=== PATIENT | female | born 1935 | race Asian ===

== ENCOUNTER 2018-03-23 06:08 | Day surgery (SDC) | payer MEDICARE ==
[2018-03-23] MEDS ORDERED: LIDOCAINE 1% MDV 20ML VIAL SQ (06:15)
[2018-03-23] MEDS ORDERED: NS 1,000 ML IV (06:15)
[2018-03-23 06:43] LABS: POTASSIUM SERUM 5.1 MEQ/L (3.5-5.1)
[2018-03-23] MEDS ORDERED: LIDOCAINE 2% INJ 100 MG/5 ML SDV (FOR ANES.) As Ordered (07:04)
[2018-03-23] MEDS ORDERED: PROPOFOL 200 MG/20 ML VIAL As Ordered ×2 (07:04)
[2018-03-23] MEDS ORDERED: fentaNYL 100 MCG/2 ML INJECTION (J3010) As Ordered (07:09)
[2018-03-23] MEDS ORDERED: MIDAZOLAM INJ 2 MG/2 ML VIAL (J2250) As Ordered (07:09)
[2018-03-23] MEDS: BUPIVACAINE HCL 0.5% 30 ML VIAL As Ordered (07:30)
[2018-03-23] MEDS: LIDOCAINE 1% SDV INJ 30 ML VIAL As Ordered (07:30)
[2018-03-23] MEDS: ceFAZolin 2 GM/D5W 50 ML IV BAG (J0690 PER 500MG) As Ordered (07:34)
[2018-03-23] MEDS: HEPARIN SOD (PORCINE) 5000 UNITS/ML VIAL As Ordered (07:46)
[2018-03-23] MEDS ORDERED: LABETALOL HCL 100 MG/20 ML VIAL As Ordered (08:04)
== END 2018-03-23 09:35 | disposition home or self-care (01) ==
LOC: M SDC 06:08
DX: T82.7XXA Infection and inflammatory reaction due to other cardiac and vascular devices, implants and grafts, initial encounter (principal); Y71.2 Prosthetic and other implants, materials and accessory cardiovascular devices associated with adverse incidents; N18.6 End stage renal disease; I12.0 Hypertensive chronic kidney disease with stage 5 chronic kidney disease or end stage renal disease; D63.1 Anemia in chronic kidney disease; N25.81 Secondary hyperparathyroidism of renal origin; E87.5 Hyperkalemia; M46.92 Unspecified inflammatory spondylopathy, cervical region; E78.00 Pure hypercholesterolemia, unspecified; F41.9 Anxiety disorder, unspecified; Z79.899 Other long term (current) drug therapy; Z99.2 Dependence on renal dialysis; Z86.14 Personal history of Methicillin resistant Staphylococcus aureus infection; Z86.19 Personal history of other infectious and parasitic diseases
CPT/HCPCS: 35903

== ENCOUNTER 2018-04-29 11:09 | Day surgery (SDC) | payer MEDICARE ==
[2018-04-29] MEDS ORDERED: ePHEDrine SULFATE 25 MG/5 ML(5MG/ML) SYRINGE (11:10)
[2018-04-29] MEDS: NS 1,000 ML IV (11:45)
[2018-04-29] MEDS ORDERED: fentaNYL 100 MCG/2 ML INJECTION (J3010) As Ordered (12:18)
[2018-04-29] MEDS ORDERED: PROPOFOL 200 MG/20 ML VIAL As Ordered ×3 (12:18→14:35)
[2018-04-29] MEDS ORDERED: MIDAZOLAM INJ 2 MG/2 ML VIAL (J2250) As Ordered (12:18)
[2018-04-29] MEDS ORDERED: LIDOCAINE 2% INJ 100 MG/5 ML SDV (FOR ANES.) As Ordered (12:18)
[2018-04-29] MEDS: ISOVUE-300 61% 50ML VIAL (Q9967) As Ordered (12:29)
[2018-04-29] MEDS: ZOSYN 3.375 GM VIAL (J2543) As Ordered (13:01)
[2018-04-29] MEDS: BUPIVACAINE HCL 0.5% 30 ML VIAL As Ordered (13:22)
[2018-04-29] MEDS: LIDOCAINE 1% SDV INJ 30 ML VIAL As Ordered (13:22)
[2018-04-29] MEDS: HEPARIN SOD (PORCINE) 5000 UNITS/ML VIAL As Ordered (13:35)
[2018-04-29] MEDS ORDERED: HEPARIN SOD (PORCINE) 5000 UNITS/ML VIAL As Ordered ×2 (13:53)
[2018-04-29] MEDS: THROMBIN SOLN 20,000 UNITS KIT As Ordered (14:11)
[2018-04-29] MEDS ORDERED: ONDANSETRON 4MG/2ML VIAL (J2405) As Ordered (15:43)
[2018-04-29] MEDS ORDERED: PROTAMINE SULF INJ 50 MG/5 ML VIAL (J2720) As Ordered (15:43)
[2018-04-29] MEDS: ePHEDrine SULFATE 25 MG/5 ML(5MG/ML) SYRINGE IV (16:10)
[2018-04-29] MEDS ORDERED: NS 1,000 ML IV (16:30)
[2018-04-29] MEDS ORDERED: fentaNYL 100 MCG/2 ML INJECTION (J3010) IV (16:30)
[2018-04-29] MEDS ORDERED: ONDANSETRON 4MG/2ML VIAL (J2405) IV (16:30)
[2018-04-29] MEDS ORDERED: PERCOCET 5MG/325MG TAB As Ordered (16:31)
[2018-04-29] MEDS: PERCOCET 5MG/325MG TAB PO (16:32)
[2018-04-29] MEDS ORDERED: NS 300 ML IV (16:45)
[2018-04-29 16:48] LABS: HEMATOCRIT 27.4 % (36.0-47.0); MEAN CORPUSCULAR HEMOGLOBIN 33.3 pg (27.0-33.0); MEAN CORPUSCULAR HGB CONC 32.8 g/dl (32.0-36.5); MEAN CORPUSCULAR VOLUME 101.5 fl (80.0-96.0); PLATELET COUNT, AUTOMATED 173 10^3/uL (150-450); RED CELL DISTRIBUTION WIDTH 15.9 % (11.5-14.5); WHITE BLOOD COUNT 6.8 10^3/uL (4.0-10.0)
== END 2018-04-29 18:45 | disposition home or self-care (01) ==
LOC: M SDC 11:09
DX: N18.6 End stage renal disease (principal); T80.212A Local infection due to central venous catheter, initial encounter; I12.0 Hypertensive chronic kidney disease with stage 5 chronic kidney disease or end stage renal disease; D63.1 Anemia in chronic kidney disease; M12.9 Arthropathy, unspecified; F41.9 Anxiety disorder, unspecified; Z88.1 Allergy status to other antibiotic agents; Z88.8 Allergy status to other drugs, medicaments and biological substances; Z91.040 Latex allergy status; Z91.041 Radiographic dye allergy status; Z91.048 Other nonmedicinal substance allergy status; Z79.899 Other long term (current) drug therapy; Z86.14 Personal history of Methicillin resistant Staphylococcus aureus infection; Z86.19 Personal history of other infectious and parasitic diseases; Z78.0 Asymptomatic menopausal state; Z99.2 Dependence on renal dialysis; X58.XXXA Exposure to other specified factors, initial encounter; Y93.89 Activity, other specified; Y92.89 Other specified places as the place of occurrence of the external cause; Y99.8 Other external cause status
CPT/HCPCS: 34101

== ENCOUNTER → 2018-05-13 | Outpatient (CLI) | payer MEDICARE ==
[~2018-05-13] MED LIST: ISOVUE-300 61% 50ML VIAL (Q9967) As Ordered; LIDOCAINE 2% MDV 20 ML VIAL As Ordered; MIDAZOLAM INJ 2 MG/2 ML VIAL (J2250) As Ordered; fentaNYL 100 MCG/2 ML INJECTION (J3010) As Ordered
== END | disposition home or self-care (01) ==
LOC: M IRPRO 08:48
DX: T82.858A Stenosis of other vascular prosthetic devices, implants and grafts, initial encounter (principal); I12.0 Hypertensive chronic kidney disease with stage 5 chronic kidney disease or end stage renal disease; N18.6 End stage renal disease
CPT/HCPCS: 36902

== ENCOUNTER → 2018-07-06 | Outpatient (CLI) | payer MEDICARE ==
[~2018-07-06] MED LIST changes: +diphenhydrAMINE 50 MG CAP As Ordered
== END | disposition home or self-care (01) ==
LOC: M IRPRO 06:06
DX: T82.858A Stenosis of other vascular prosthetic devices, implants and grafts, initial encounter (principal); N18.6 End stage renal disease; Z99.2 Dependence on renal dialysis
CPT/HCPCS: 36902

== ENCOUNTER → 2018-08-03 | Outpatient (CLI) | payer MEDICARE ==
[~2018-08-03] MED LIST changes: -ISOVUE-300 61% 50ML VIAL (Q9967) As Ordered; -MIDAZOLAM INJ 2 MG/2 ML VIAL (J2250) As Ordered; -diphenhydrAMINE 50 MG CAP As Ordered; -fentaNYL 100 MCG/2 ML INJECTION (J3010) As Ordered
== END | disposition home or self-care (01) ==
LOC: M IRPRO 08:35
DX: Z45.2 Encounter for adjustment and management of vascular access device (principal); N18.6 End stage renal disease; Z99.2 Dependence on renal dialysis
CPT/HCPCS: 36589

== ENCOUNTER → 2018-08-05 | Outpatient (CLI) | payer MEDICARE | LOC: M RAD 13:25 | DX: R91.8 Other nonspecific abnormal finding of lung field (principal) | CPT/HCPCS: 71250 ==

== ENCOUNTER → 2018-11-02 | Outpatient (CLI) | payer MEDICARE ==
[~2018-11-02] MED LIST changes: +AMLO10TA PO; +AMLO5TAB6 PO; +ASPI1TAB PO; +ATEN50TA2 PO; +BACT400T PO; +BENA25CA4 PO; +CETI10TA PO; +CETI5SOL3 PO; +CINA30TA PO; +DAKINSHS TOP; +HYDR-3910 PO; +ISOVUE-300 61% 50ML VIAL (Q9967) As Ordered ONE; -LIDOCAINE 2% MDV 20 ML VIAL As Ordered; +LIDOCAINE 2% MDV 20 ML VIAL As Ordered ONE; +LIPI20TA PO; +MIDAZOLAM INJ 2 MG/2 ML VIAL (J2250) As Ordered ONE; +MUCI600T37 PO; +NEPHTAB PO; +PEG1POW PO; +POLY33503; +RENV2TAB PO; +SULF1TAB72 PO; +TUMS500C PO; +TYLE325T5 PO; +VITA1CAP2 PO; +fentaNYL 100 MCG/2 ML INJECTION (J3010) As Ordered ONE; +vancomycin iv IV
--- NOTE | 2018-11-02 09:23 | ROOPDOC ---
Ramírez Shelton MD Nov 02, 2018 09:23
--- NOTE | 2018-11-17 14:16 | REPIR ---
DATE OF PROCEDURE: 11/02/2018 ATTENDING SURGEON: Dr. Dandre Shelton SCANNING SUPERVISOR: Nessa Montelongo and Evon Kaiser PREOPERATIVE DIAGNOSES: End-stage renal disease. Dysfunction left brachial artery to axillary vein arteriovenous graft. POSTOPERATIVE DIAGNOSES: End-stage renal disease. Dysfunction left brachial artery to axillary vein arteriovenous graft. PROCEDURE: Left brachial artery axillary arteriovenous graft fistulogram. Left arteriovenous graft angioplasty with an 8 x 200 balloon. Left axillary vein angioplasty with an 8 x 200 balloon. Placement of two sheaths. Selective left brachial artery catheter placement with angiogram runoff. Left brachial artery angioplasty with 6 x 40 mm balloon. Left arteriovenous graft angioplasty with 6 x 40 mm balloon. INDICATION: The patient is an 82-year-old female with end-stage renal disease who dialyzes through a left brachial artery to axillary vein arteriovenous graft which has been removed due to infection and then replaced and the patient now has difficulty with pulsatility within the graft and excessive bleeding on decannulation. The patient undergo a fistulogram with possible angioplasty, stent and/or atherectomy. Risks, benefits and alternative treatment options were discussed with the patient. ANESTHESIA: Local with sedation 1 mg Versed, 50 mcg of fentanyl and 2 mL of 2% lidocaine. FLUORO TIME: 1.1 minutes. CONTRAST: 6 mL of ISOVUE 300. SEDATION TIME: Was from 8:31 a.m. to 8:53 a.m. for a total 22 minutes. COMPLICATIONS: None. DRAINS: None. SPECIMENS: None. IMPLANTS: None. PROCEDURE Patient was taken to the angiography suite, placed supine on the angiography room table, and the left upper extremity was prepped and draped in the standard surgical fashion. The arteriovenous graft was cannulated. The fistulogram showed stenosis at the graft to axillary vein anastomosis which was angioplastied with an 8 x 200 balloon with a followup fistulogram showing resolution of the stenosis. A retrograde brachial artery angiogram showed stenosis at the graft to brachial artery anastomosis. A second cannulation was performed. Catheter placed in the brachial artery and an angiogram performed confirming the stenosis after which the brachial artery and graft at the anastomosis were angioplastied with a 6 x 40 mm balloon. A completion brachial artery angiogram with runoff was performed showing resolution of the stenosis with excellent flow into the graft. There was a thrill returned to the graft at the completion intervention. The patient tolerated the procedure well. All instrument, sponge, needle counts were correct at the end of the case. There were no complications. Dr. Shelton was present for and directed the entire case. The patient was transferred to the holding area and subsequently discharged in stable condition. The left upper arm arteriovenous graft is stable for use for continued hemodialysis access.
== END | disposition home or self-care (01) ==
LOC: M IRPRO 06:25
PROVIDERS: ATTEND Surgery Vascular Surgery
DX: T82.858A Stenosis of other vascular prosthetic devices, implants and grafts, initial encounter (principal); I70.208 Unspecified atherosclerosis of native arteries of extremities, other extremity; N18.6 End stage renal disease; Z99.2 Dependence on renal dialysis
CPT/HCPCS: 36215; 36902; 75710; C1725; C1769; C1894; J2250; J3010; Q9967

== ENCOUNTER → 2019-06-30 | Outpatient (CLI) | payer MEDICARE ==
[~2019-06-30] MED LIST changes: -ASPI1TAB PO; +ASPI81TA26 PO; -CINA30TA PO; +CINA30TA4 PO; -ISOVUE-300 61% 50ML VIAL (Q9967) As Ordered ONE; -LIDOCAINE 2% MDV 20 ML VIAL As Ordered ONE; -MIDAZOLAM INJ 2 MG/2 ML VIAL (J2250) As Ordered ONE; +NEPH1TAB11 PO; -NEPHTAB PO; +VITA-183 PO; -VITA1CAP2 PO; -fentaNYL 100 MCG/2 ML INJECTION (J3010) As Ordered ONE
--- NOTE | 2019-07-22 14:25 | DEXA ---
AP SPINE L1 - L4 0.989 -1.7 0.3 LT FEMUR TOTAL 0.600 -3.2 -1.0 LT NECK 0.602 -3.1 -0.8 RT FEMUR TOTAL 0.621 -3.1 -0.8 RT NECK 0.633 -2.9 -0.6 TOTAL BODY TOTAL OTHER COMMENTS: There is low bone density of the spine. There is osteoporosis of the hips. FOLLOW-UP: Recommendation for the next bone density exam: 2 years. MAHENDRA
== END ==
LOC: M WHC 07:18
PROVIDERS: ATTEND Nurse Practitioner Family
DX: M81.0 Age-related osteoporosis without current pathological fracture (principal)

== ENCOUNTER → 2019-09-01 | Outpatient (CLI) | payer MEDICARE ==
[~2019-09-01] MED LIST changes: +ATOR1TAB21 PO; +HEPARIN 1,000 UNITS/ML 10ML VIAL (FOR RADIOLOGY& DIALYSIS ONLY) As Ordered ONE; +HYDR10TAB PO; +LIDOCAINE W/EPINEPHRINE 1% 20ML VIAL As Ordered ONE; +RENATAB6 PO; +ROCA0.5C PO; +SENS60TA PO; -SULF1TAB72 PO; +SULF400T14 PO; +VELP5CHW PO; +VENO20IN7 IV; +VITA100066 PO; +[UNRECOGNIZED DRUG - CODE] IV; +ceFAZolin 1GM INJ (J0690 PER 500MG) As Ordered ONE; +fentaNYL 100 MCG/2 ML INJECTION (J3010) As Ordered ONE
--- NOTE | 2019-09-01 19:17 | ROOPDOC ---
[facility] Report Of Operation Report of Operation DATE OF PROCEDURE: 09/01/19 PREPROCEDURE DIAGNOSES: End-stage renal disease and need of access for dialysis POSTPROCEDURE DIAGNOSES: Same PROCEDURE: 1. Ultrasound guided access right and left internal jugular veins, aborted 2. Ultrasound-guided access left femoral vein, aborted 3. Ultrasound-guided access right femoral vein 4. Placement of a 31 cm tunneled right femoral PermCath SURGEON: Radha Plasencia MD ANESTHESIA: Local anesthesia 14 mL lidocaine. Ancef 2 g IV. Fentanyl 50 g IV. Versed sedation was not used for this procedure. INDICATION FOR PROCEDURE: This is a very pleasant 83-year-old patient who has been on dialysis for 12 years and has exhausted all options for access. She has a functioning left upper extremity brachial axillary graft, but it is had skin erosions and expose graft for over a month for the patient. This is unsafe, and the graft must be removed and the ulcerated skin must be excised. In the interim, the patient requires access for dialysis. She warned me that she may not have any veins patent, and we will try both jugulars and possibly have to place a femoral if no other options are available. She has large collateral veins over her neck chest and abdomen suggesting a central occlusion. Unfortunately, we may be getting to the point where we are losing the ocasio of finding ongoing dialysis access for this very sweet patient. Risks benefits and alternatives to it PermCath placement were explained to the patient. She is agreeable to proceed. We then plan to take her on a separate procedure Thursday to remove the graft in the left upper extremity and excise the ulcerated skin. She is agreeable to this as well. INTERPRETATION: 1. We were unable to access the right jugular vein due to occlusion. We were unable to pass a wire through the access we obtained in the left jugular vein d ue to central occlusion. We were unable to access the left common femoral vein due to occlusion. We did have successful access in the right common femoral vein and could pass a wire to the central system. 2. Final imaging confirmed the tunneled catheter to be in good place through the right femoral vein with the tips freely mobile in the IVC. No kinks in the catheter were noted. REPORT OF OPERATION: The patient was brought to the angiographic suite in stable condition. Her bilateral neck were prepped and draped in a sterile fashion. A timeout was performed. We attempted to gain access to the right jugular vein, the could not do so due to occlusion on ultrasound. We were able to find a small patent jugular vein on the left, and local anesthesia was administered to the skin and subcutaneous tissues. We were able to access the jugular on the left under ultrasound, but the wire would not pass proximally due to central vein occlusion. We aborted jugular access at this point. She has extensive collateral veins over the bilateral neck and chest that are large, and likely she has had central occlusion for some time. We then prepped and draped the bilateral groins in a sterile fashion. We attempted to gain access to the left common femoral artery after anesthetizing with local anesthesia, but this was aborted as the vein was occluded on ultrasound. She has extensive collateral veins over the l eft groin and this has likely been occluded for quite some time. Ultrasound was used to guide access to the right common femoral vein after anesthetizing the area with local anesthesia. A wire was passed through this access and a sheath was placed. Through the sheath and Amplatz stiff wire was advanced into the central system under fluoroscopic guidance. The micro-sheath was removed and 2 dilators were passed over the wire using a Seldinger technique and a peel-away sheath was placed after a small incision was made at the access site. The inner cannula and wire were removed from the peel-away sheath. A small incision was made distal to this on the thigh after anesthetizing with local anesthesia. The catheter was tunneled from the thigh to the proximal groin access site and the tip of the catheter was advanced through the peel-away sheath into the central system under fluoroscopic guidance in the peel-away sheath was removed. Both ports dexter back and flushed easily and there were no kinks catheter. The cathete r was heparin locked and appropriate caps were placed. The access site was closed with deep and superficial interrupted Monocryl sutures and Dermabond at the skin. The exit site on the thigh was closed with a Prolene suture in the catheter was secured to the thigh with 2 additional Prolene sutures and sterile dressings were applied. The patient tolerated the procedure well and was taken to recovery in stable condition. It is okay to use the PermCath for dialysis. ESTIMATED BLOOD LOSS: Approximately 5 mL. COMPLICATIONS: None. PLAN: It is okay to use the PermCath for dialysis tomorrow. We will plan to bring the patient back to excise the exposed left upper extremity graft and excise the ulcerated skin as well this Thursday morning. New upper extremity acc ess may be extremely challenging, and it is unclear at this point if we will be able to provide the patient a functioning new upper extremity graft. Hopefully we will be able to provide some type of access. RADHA PLASENCIA MD Sep 01, 2019 19:17
[2019-09-01 19:30] VITALS: BP 201/91
== END ==
LOC: M IRPRO 15:47
PROVIDERS: ATTEND Surgery Vascular Surgery
DX: N18.6 End stage renal disease (principal); I82.C23 Chronic embolism and thrombosis of internal jugular vein, bilateral; I74.3 Embolism and thrombosis of arteries of the lower extremities

== ENCOUNTER 2019-09-02 09:13 | Inpatient (IN) | payer MEDICARE ==
[~2019-09-02] VITALS: Ht 152.4 cm; Wt 46.4 kg
[~2019-09-02 09:13] MED LIST changes: -ATOR1TAB21 PO; -HEPARIN 1,000 UNITS/ML 10ML VIAL (FOR RADIOLOGY& DIALYSIS ONLY) As Ordered ONE; -HYDR10TAB PO; -LIDOCAINE W/EPINEPHRINE 1% 20ML VIAL As Ordered ONE; -RENATAB6 PO; -ROCA0.5C PO; -SENS60TA PO; -VELP5CHW PO; -VENO20IN7 IV; -VITA100066 PO; -[UNRECOGNIZED DRUG - CODE] IV; -ceFAZolin 1GM INJ (J0690 PER 500MG) As Ordered ONE; -fentaNYL 100 MCG/2 ML INJECTION (J3010) As Ordered ONE
--- NOTE | 2019-09-02 10:19 | CR.PDOC ---
General Date of Consultation: Sep 02, [address] Plasencia HPI: She is an 83-year-old female with ESRD on hemodialysis every Thursday followed by Dr. Rincon. The patient was urgently referred to vascular surgery and was seen 09/01/19 to evaluate the patient's left upper extremity AV graft. The patient is noted to have multiple prior access sites in bilateral upper extremities. The patient reported that she had an infection in the graft and had 3 small openings over the graft area with yellowish drainage. She has not had any exces sive bleeding. She has continued to use the graft for dialysis access and was scheduled for dialysis 09/02/19. The patient reported otherwise she been feeling well. She denies fevers or chills. She does have a history of MRSA and her past history. She has vancomycin listed as allergy. The patient was arranged to have temporary dialysis access placed 09/01/[address] Plasencia. Plan is for the patient to receive dialysis today as an outpatient and then direct admission for IV antibiotics and AV graft removal 09/03/[address] Plasencia. The procedure, risks, and benefits have been reviewed and discussed with the patient as per Dr. Plasencia. Informed consent is obtained for removal of left arm graft and excision of ulceration. Consent was placed on the chart. Denies any fevers, chills, weakness, fatigue, Headache, Chest Pain, Shortness of breath, cough, palpitations, abdominal pain, N/V/D or changes in bowel or bladder habits. PMHx: ESRD, dialysis every Thursday Hypertension History of hepatitis B History of MRSA 2006 Dyslipidemia Allergic rhinitis PSHX: Multiple dialysis access sites bilateral upper extremities Last AV graft revision 01/18/18 left upper extremity EGD Colonoscopy SOCHX: Tobacco use: Denies ETOH: Denies Illicit Drugs: Denies FAMHX: Mother: , unknown Father: , unknown ROS: As noted in HPI, otherwise 11pt ROS of systems reviewed and unremarkable. PE: GEN: 83 yo F, appears stated age. Well-nourished, well developed. No acute distress. Alert and oriented x 3. Pleasant, interactive. HEENT: Normocephalic, atraumatic. Moist mucous membranes. CHEST: Regular rate and rhythm, +S1, +S2 LUNGS: Clear to auscultation bilaterally. No wheezes, rales, or rhonchi. ABD: Round, soft, non-tender, non-distended. EXT: The patient is noted to have small ulcerations of the skin above the AV graft left upper extremity with yellowish drainage noted. Palpable thrill. No bleeding. Small amount of surrounding erythema. No swelling of the left upper e xtremity. Multiple healed surgical sites and prior dialysis access sites noted bilateral upper extremities. NEURO: Alert and oriented x 3. Cranial nerves III-XII are intact. No focal deficits appreciated. A&P: 1. ESRD with dialysis every Thursday, patient with infected AV graft left upper extremity. Status post temporary hemodialysis access obtained 09/01/19. Unable to access the right jugular vein due to occlusion. Unable to pass a wire through the access we obtained in the left jugular vein due to central occlusion. Unable to access the left common femoral vein due to occlusion. Successful access in the right common femoral vein and could pass a wire to the central system. Patient currently with tunneled catheter to be in good place through the right femoral vein with the tips freely mobile in the IVC. The patient is receiving hemodialysis as an outpatient this morning 09/02/19. Continue with dialysis as managed by nephrology. Plan is for direct admission with hospitalist after dialysis today. Plan for continued IV antibiotics. The patient is receiving Ancef with dialysis today. The patient is noted to have vancomycin allergy. The patient is noted to have history of MRSA 2007. We will leave antibiotic regimen with hospitalist. Plan for removal of AV graft after upper extremity and excision of ulceration 09/03/[address] Plasencia. The procedure, risks, and benefits have been reviewed with the patient as per Dr. Plasencia. Informed consent was placed on the chart. Admission labs pending. Nothing by mouth after midnight tonight. Thank you for your consultation. We will continue to follow along with you. Vital Signs/I&O Admission vital signs pending. Laboratory Data Labs 24H Admission labs pending. Allergies Coded Allergies: latex (Verified Allergy, Intermediate, BLISTERS, 09/02/19) Contrast Media (Verified Allergy, Unknown, PT IS UNSURE OF REACTION, 09/02/19) iodine (Verified Allergy, Unknown, PT IS UNSURE OF REACTION, 09/02/19) vancomycin (Verified Allergy, Unknown, PT IS UNSURE OF REACTION, 09/02/19) Home Medications Scheduled Amlodipine Besylate (Amlodipine Besylate) 5 Mg Tablet, 5 MG PO DAILY, (Reported) Atorvastatin Calcium (Atorvastatin Calcium) 20 Mg Tablet, 20 MG PO QHS, (Reported) Calcitriol (Rocaltrol) 0.5 Mcg Capsule, 0.5 MCG PO 3XW, (Reported) MON/WED/FRI AT DIALYSIS Cefazolin Sodium (Cefazolin Sodium) 500 Mg Vial, 2 GM IV 3XW, (Reported) MON/WED/FRI AT DIALYSIS Cholecalciferol (Vitamin D3) (Vitamin D3) 1,000 Unit Tablet, 1,000 UNIT PO DAILY, (Reported) Cinacalcet HCl (Sensipar) 60 Mg Tablet, 60 MG PO 3XW, (Reported) MON/WED/FRI AT DIALYSIS Hydralazine HCl (Hydralazine HCl) 10 Mg Tablet, 10 MG PO BID, (Reported) Iron Sucrose Complex (Venofer) 100 Mg/5 Ml Vial, 100 MG IV 3XW, (Reported) MON/WED/FRI AT DIALYSIS Sevelamer Carbonate (Renvela) 800 Mg Tablet, 800 MG PO WM, (Reported) Sucroferric Oxyhydroxide (Velphoro) 500 Mg Tab.chew, 1,000 MG PO WM, (Reported) Vit B Comp No.3/Folic/C/Biotin (Nadege-Venkata Rx Tablet) 1 Each Tablet, 1 TAB PO DAILY, (Reported) Scheduled PRN Calcium Carbonate (Tums) 200 Mg Tab.chew, 500 MG PO for HEARTBURN/INDIGESTION, (Reported) Tracy Figueredo Sep 02, 2019 09:59
[2019-09-02 14:00] VITALS: BP 185/87
[2019-09-02] MEDS ORDERED: ROCA0.5C PO (16:17)
[2019-09-02] MEDS ORDERED: AMLO5TAB6 PO (16:17)
[2019-09-02] MEDS ORDERED: ATOR1TAB21 PO (16:17)
[2019-09-02] MEDS ORDERED: VELP5CHW PO (16:17)
[2019-09-02] MEDS ORDERED: VITA100066 PO (16:17)
[2019-09-02] MEDS ORDERED: VENO20IN7 IV (16:17)
[2019-09-02] MEDS ORDERED: SENS60TA PO (16:17)
[2019-09-02] MEDS ORDERED: RENV2TAB PO (16:17)
[2019-09-02] MEDS ORDERED: TUMS500C PO (16:17)
[2019-09-02] MEDS ORDERED: RENATAB6 PO (16:17)
[2019-09-02] MEDS ORDERED: [UNRECOGNIZED DRUG - CODE] IV (16:17)
[2019-09-02] MEDS ORDERED: HYDR10TAB PO (16:17)
[2019-09-02] MEDS ORDERED: IRON SUCROSE 100MG 5ML VIAL (J1756 PER 1MG) IV SCH (16:45)
[2019-09-02] MEDS ORDERED: CALCIUM CARBONATE 500 MG CHEW U/D PO PRN (16:45)
[2019-09-02] MEDS ORDERED: CINACALCET 30 MG TAB (SENSIPAR) PO SCH ×2 (16:45→17:39)
[2019-09-02] MEDS ORDERED: CALCITRIOL 0.25 MCG CAP (S0169) PO SCH ×2 (16:45→17:39)
--- NOTE | 2019-09-02 17:40 | HPE ---
DATE OF ADMISSION: 09/02/2019 My preceptor for this encounter is Dr. Darvin Banda. CHIEF COMPLAINT: Infected left upper extremity arteriovenous (AV) graft. HISTORY OF PRESENT ILLNESS: This is a very pleasant 83-year-old female with a past medical history significant for end-stage renal disease on hemodialysis (Thursday, Thursday, Thursday) and previous infected grafts who has noticed pus draining out of her left upper extremity AV graft for about a month. She says that it was noticed by the dialysis nurse on Thursday, and then on (yesterday), Dr. Plasencia was able to place a right common femoral vein tunneled Perma-Cath. She was able to use it at dialysis this morning, no labs were drawn. She had 1.3 liters taken off of dialysis this morning, and the plan is for her to be taken to the operating room (OR) tomorrow to excise the ulcerated skin of the left upper extremity graft. She denies any fevers or chills, lightheadedness, or diarrhea. She was mildly wheezy yesterday, but states that her wheeziness and sometimes shortness of breath will be triggered by cold. She did receive 2 grams of cefazolin this morning at dialysis. She had reported infection in the graft and had three small openings over the graft area that had drained yellow pus, but denied any type of bleeding. PAST MEDICAL HISTORY: End-stage renal disease, on hemodialysis (Thursday, Thursday, Thursday). Hypertension. Hepatitis B. Dyslipidemia. Recurrent hyperkalemia. Secondary hyperparathyroidism of renal origin. Anemia of chronic kidney disease. History of multiple graft infections, methicillin-resistant Staphylococcus aureus (MRSA) in 2006, subsequent wounds have been methicillin-sensitive Staphylococcus aureus (MSSA). PAST SURGICAL HISTORY: 1. Bilateral cataract surgery. 2. Multiple dialysis access placements with fistulograms and angioplasties. 3. Esophagogastroduodenoscopy (EGD) and colonoscopy. ALLERGIES: CALCITRIOL, IODINE, CONTRAST MEDIA, LATEX, VANCOMYCIN. HOME MEDICATIONS: - amlodipine 5 mg by mouth daily - atenolol 50 mg by mouth daily - atorvastatin 20 mg by mouth nightly - vitamin D3 1000 units by mouth daily - Sensipar 30 mg by mouth daily - Benadryl 25 mg by mouth daily as needed - hydralazine 25 mg by mouth twice a day - polyethylene glycol 255 gram powder weekly - Renvela 1600 mg by mouth with meals - Nephro-Venkata RX tablet one tablet by mouth three times a week - Tylenol 650 mg by mouth every 4 hours as needed for pain - Tums 1000 mg by mouth as needed for heartburn SOCIAL HISTORY: The patient is originally from [facility] and 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 Her in the . She is a never smoker and does not use drugs. She denies having any pets. She will have one glass of wine occasionally, typically on a month by month basis if she goes out with friends. She lives alone but has a nephew that lives upstairs from her. FAMILY HISTORY: Noncontributory. REVIEW OF SYSTEMS: Constitutional: Denies any fevers, chills, weight loss or changes to her sleeping pattern. Eyes: Denies headache, double vision, floaters or feeling like a curtain got pulled down. Ear nose, throat: Denies runny nose, epistaxis, sinus pain, tinnitus, gingival bleeding, sore throat or odynophagia. Cardiovascular: Denies any chest pain, paroxysmal nocturnal dyspnea, orthopnea, edema, palpitations or claudication. She does state that she has had multiple vascular surgeries. Respiratory: Denies any cough, sputum production, wheezes, hemoptysis or shortness of breath. Gastrointestinal: Denies abdominal pain, difficulty swallowing, indigestion, nausea, vomiting, diarrhea, constipation, obstipation, hematemesis, hematochezia, melena or tenesmus. Genitourinary: Patient says that she does make a slight amount of urine, but not very much since she is on hemodialysis. She denies any dysuria or hematuria. Musculoskeletal: Positive for some mild chronic neck pain. Denies any new stiffness, joint swelling or decreased range of motion. Integumentary: Positive for an infected left upper extremity AV graft. Denies any new pruritus, rashes, striae or lesions. Positive for a brand new right femoral vein Perma-Cath. Neurologic: Denies any changes to sight/smell/hearing/taste, seizures, headaches, paresthesias, anesthesias or limb weakness. Psychiatric: Denies any depression, anxiety, paranoia, anhedonia or episodes of dar. Endocrine: Denies mood swings, diarrhea, tremor, palpitations, constipation, dry skin polydipsia or polyphagia. Hematologic: Denies any anemia, purpura or petechiae. Lymphatic: Denies any new lumps or bumps anywhere. PHYSICAL EXAMINATION: Vital signs: Temperature 97.1, blood pressure 185/87, 95% on room air, respiratory rate 19, heart rate 78 beats per minute and regular. Weight is 44.4 kg. General: The patient is seen at bedside. She is pleasant and cooperative as well as awake, alert and oriented. She is comfortable and in no acute distress. Skin: Dark in color, somewhat jaundiced. HEENT: Sclerae are icteric. The patient has her own teeth and dentition is fair with some dental caries and caps but no missing teeth. Head is atraumatic, normocephalic. The patient makes good eye contact. Extraocular eye movements intact. Neck: Jugular venous pulsations are seen above the sternal angle, no masses. No thyromegaly. Heart: Regular rate and rhythm with a systolic murmur best appreciated at the second intercostal space left of the sternum without radiation into the carotids. No other gallops or rubs appreciated. Lungs: Clear to auscultation bilaterally. No wheezes, rhonchi or rales. Abdomen: Soft, nontender, nondistended. Normoactive bowel sounds. No masses to palpation. Extremities: Left upper extremity does have a bandage over it. There is a palpable thrill over the left AV graft, no bleeding, dressing is dry and intact. Right femoral tunnel catheter is in place, no oozing or bleeding noted. Vascular: The patient has multiple healed surgical sites in prior dialysis access sites noted in the bilateral upper extremities. Veins are easily palpable and hard to touch. Neurologic: The patient is moving all extremities freely, muscle strength is 5/5 bilaterally. Sensation is intact throughout. Cranial nerves II-XII grossly intact. No laboratory data or imaging was available for review. ASSESSMENT: This is an 83-year-old [place] female with end-stage renal disease on hemodialysis (Thursday, Thursday, Thursday) who is admitted due to a left upper extremity AV graft infection. She is postop day #1 status post right femoral Perma-Cath placement by Dr. Plasencia on 09/01/2019. PLAN: 1. Left upper extremity AV graft infection. Right common femoral vein Perma-Cath placed yesterday by Dr. Plasencia. Blood cultures have been drawn, though she did receive 2 grams of Ancef during dialysis this morning. The plan is for her to have removal of her AV graft in the left upper extremity and excision of the ulceration tomorrow 09/03/2019. She does have a history of MRSA in 2007, however her admission in 2018 showed MSSA. Blood cultures are pending, we will adjust antibiotics accordingly. 2. End-stage renal disease - on hemodialysis Thursday, Thursday, Thursday. We have consulted Dr. Rincon, appreciate his help. She did have 1.3 liters taken off this morning, and her dialysis days are Thursday, Thursday, Thursday as mentioned above. Renal diet ordered. Continue home calcitriol 0.5 mcg by mouth three times per week, vitamin D3 1000 units by mouth daily, Renvela 800 mg by mouth with meals. 3. History of hyperkalemia. No labs were drawn at this morning dialysis session. Admission labs are pending. Will add Kayexalate as needed. 4. Hypertension. Continue her home amlodipine, hydralazine. Volume control per nephrology with dialysis. 5. Hyperlipidemia. Continue home atorvastatin 20 mg by mouth nightly. 6. Anemia of chronic kidney disease. Continue with home Velphoro 1000 mg by mouth with meals and Venofer 100 mg per 5 mL infusion three times a week with dialysis. 7. Secondary hyperparathyroidism. Continue home Sensipar 60 mg by mouth three times a week. 8. Heartburn: Continue TUMS as needed. 9. Deep vein thrombosis (DVT) prophylaxis. Heparin. CODE STATUS: The patient is a DO NOT RESUSCITATE/DO NOT INTUBATE (DNR/DNI), Medical Orders for Life-Sustaining Treatment (MOLST) form is in the chart. DISPOSITION: Inpatient as we expect greater than two midnights. MTDD
[2019-09-02] MEDS: (RENVELA) SEVELAMER **CARBONate** 800 MG TAB PO SCH (17:55)
[2019-09-02 19:32] LABS: HEMOGLOBIN 9.8 g/dl (12.0-15.5); MEAN CORPUSCULAR HEMOGLOBIN 32.5 pg (27.0-33.0); MEAN CORPUSCULAR HGB CONC 31.6 g/dl (32.0-36.5); MEAN CORPUSCULAR VOLUME 102.6 fl (80.0-96.0); PLATELET COUNT, AUTOMATED 215 10^3/uL (150-450); RED BLOOD COUNT 3.02 10^6/uL (4.00-5.40); WHITE BLOOD COUNT 4.6 10^3/uL (4.0-10.0)
[2019-09-02 19:50] LABS: ALBUMIN 3.1 GM/DL (3.2-5.2); CALCIUM LEVEL 8.9 MG/DL (8.8-10.2); CREATININE FOR GFR 3.9 MG/DL (0.55-1.30); GLOMERULAR FILTRATION RATE 11.7 (>32); PHOSPHORUS LEVEL 4.2 MG/DL (2.5-4.9); POTASSIUM SERUM 3.6 MEQ/L (3.5-5.1)
[2019-09-02] MEDS: SUCROFERRIC OXYHYDROXIDE 500MG CHEW TAB (VELPHORO) PO SCH (20:14)
[2019-09-02] MEDS: ATORVASTATIN 20 MG TAB PO SCH (20:15)
[2019-09-02] MEDS: **hydrALAZINE** 10 MG TAB PO SCH (20:15)
[2019-09-02] MEDS ORDERED: HEPARIN SOD (PORCINE) 5000 UNITS/ML VIAL SQ SCH (21:00)
[2019-09-02 21:28] VITALS: BP 180/90
[2019-09-02 22:46] VITALS: BP 150/70
[2019-09-03] VITALS (9 sets, daily range): BP systolic 102–163; BP diastolic 47–67
[2019-09-03 05:55] LABS: HEMATOCRIT 31.4 % (36.0-47.0); HEMOGLOBIN 9.8 g/dl (12.0-15.5); MEAN CORPUSCULAR HEMOGLOBIN 31.8 pg (27.0-33.0); MEAN CORPUSCULAR HGB CONC 31.2 g/dl (32.0-36.5); MEAN CORPUSCULAR VOLUME 101.9 fl (80.0-96.0); PLATELET COUNT, AUTOMATED 209 10^3/uL (150-450); RED BLOOD COUNT 3.08 10^6/uL (4.00-5.40); WHITE BLOOD COUNT 4.4 10^3/uL (4.0-10.0)
[2019-09-03 06:17] LABS: CALCIUM LEVEL 8.7 MG/DL (8.8-10.2); CREATININE FOR GFR 5.07 MG/DL (0.55-1.30); GLOMERULAR FILTRATION RATE 8.6 (>32); PHOSPHORUS LEVEL 4.7 MG/DL (2.5-4.9)
[2019-09-03] MEDS: (RENVELA) SEVELAMER **CARBONate** 800 MG TAB PO SCH ×4 (08:00→18:23)
[2019-09-03] MEDS: SUCROFERRIC OXYHYDROXIDE 500MG CHEW TAB (VELPHORO) PO SCH ×4 (08:00→18:22)
--- NOTE | 2019-09-03 08:13 | IPNPDOC ---
Date Seen The patient was seen on 09/03/19. Progress Note Ms Robbins is a very pleasant 83-year-old patient with end-stage renal disease who has had 12 years of difficult dialysis access and now presents with serious problem with her left upper extremity AV graft. We saw her in clinic on due to reports of ulceration over her PTFE brachial axillary graft. According to the patient, she has had ulcers over the graft with exposed graft and yellow discharge for over a month. She says the dialysis nurses have been accessing more proximally on the arm towards the shoulder to avoid the area. Unfortunately, this is an extremely serious issue for her for 2 reasons. One, because the graft is by definition infected once it is exposed and this puts her at high risk for bacteremia and infection of all the failed grafts she has in her bilateral upper and lower extremities. She has had AV grafts in her right leg, right forearm, right upper arm, left forearm left upper arm and we are extremely worried that we will not be able to place a new AV access for her safely once we excised the infected graft. 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 The only place we could place a PermCath for temporary dialysis access while we deal with her left upper extremity axis issue is her right common femoral vein. This is not a good option for long-term catheter, has femoral PermCath tend to get infected easily and clot easily. I'm very worried about her long-term prognosis if we cannot provide new additional access. Ideally, we would excise the infected graft in the ulcerated skin and allow the arm to heal before placing a new access. However, in this patient, that is not necessarily the best option because we may not be able to suitably place a new access due to limitations in venous outflow. Right now, I suspect her left upper extremity AV graft is functioning mostly on outflow through collateral circulation. The patient has extensive large visible collaterals on her bilateral neck and clavicles, and her chest, abdomen, and left groin. At this point, I am concerned that we may have to ligate the PTFE graft proximally and distally, excise the graft in the area of the ulceration, and anastomosis a new interposition graft tunneled through a noninfected area. We would do this with the understanding that this new graft has extremely high risk of becoming infected. The patient may need a course of IV antibiotics with dialysis over the next few months to try to stave off infection. Blood cultures preoperative pending, and if these are negative, that will increase the chances we may be able to get her through this without bacteremia and infection. Nevertheless, this is extremely high risk. If I feel t here is no safe way to tunnel a new graft, or if I cannot find a way to place the graft in a position due to limitations of venous outflow, we may be at an impass and need to discuss possible transfer to [place] for a more heroic option for dialysis access vs discussing end of life care. I have had this discussion with the patient, and she understands we may be very limited in what we can provide for access. We will see how things go in the OR and discuss her care with our nephrology colleagues postoperatively. VS, I&O, 24H, Fishbone Vital Signs/I&O Vital Signs Date Time Temp Pulse Resp B/P (MAP) Pulse Ox O2 Delivery O2 Flow Rate FiO2 09/03/19 06:00 98.2 71 16 162/67 (98) 95 Room Air I&O- Last 24 Hours up to 6 AM 09/03/19 06:00 Intake Total 660 ml Output Total 0 ml Balance 660 ml Laboratory Data 24H LABS Laboratory Tests 2 09/02/19 19:18: Nucleated Red Blood Cells % (auto) 0.0, Anion Gap 6L, Glomerular Filtration Rate 11.7L, Calcium Level 8.9, Phosphorus Level 4.2, Albumin 3.1L 09/03/19 05:30: Nucleated Red Blood Cells % (auto) 0.0, Anion Gap 13, Glomerular Filtration Rate 8.6L, Calcium Level 8.7L, Phosphorus Level 4.7, Albumin 3.0L CBC/BMP Laboratory Tests 09/02/19 19:18 09/03/19 05:30 Microbiology Microbiology 09/02/19 Blood Culture, Received Pending 09/02/19 Blood Culture, Received Pending RADHA CARMONA MD Sep 03, 2019 08:13
[2019-09-03] MEDS: amLODIPine 5 MG TAB PO SCH (08:43)
[2019-09-03] MEDS: **hydrALAZINE** 10 MG TAB PO SCH ×2 (08:43→20:21)
[2019-09-03] MEDS: VITAMIN D 1,000 INTERNATIONAL UNITS TABLET PO SCH (08:43)
[2019-09-03] MEDS ORDERED: PNEUMOCOCCAL VACCINE 0.5ML SYRINGE(90732) PNEUMOVAX 23 IM ONE (09:00)
[2019-09-03] MEDS ORDERED: HEPARIN SOD (PORCINE) 5000 UNITS/ML VIAL As Ordered ONE ×3 (10:05→11:56)
[2019-09-03] MEDS ORDERED: LIDOCAINE 1% SDV INJ 30 ML VIAL As Ordered ONE (10:05)
[2019-09-03] MEDS ORDERED: VANCOMYCIN 1000 MG/20 ML VIAL (J3370) As Ordered ONE (10:09)
[2019-09-03] MEDS ORDERED: fentaNYL 100 MCG/2 ML INJECTION (J3010) As Ordered ONE ×2 (10:16→13:43)
[2019-09-03] MEDS ORDERED: MIDAZOLAM INJ 2 MG/2 ML VIAL (J2250) As Ordered ONE (10:16)
[2019-09-03] MEDS ORDERED: LIDOCAINE 2% INJ 100 MG/5 ML SDV (FOR ANES.) As Ordered ONE (10:16)
[2019-09-03] MEDS ORDERED: SUGAMMADEX SODIUM 500 MG/5 ML VIAL (BRIDION) As Ordered ONE (10:16)
[2019-09-03] MEDS ORDERED: ROCURONIUM BROMIDE 50 MG/5 ML VIAL As Ordered ONE (10:16)
[2019-09-03] MEDS ORDERED: METOCLOPRAMIDE INJ 10MG/2ML VIAL (J2765) As Ordered ONE (10:16)
[2019-09-03] MEDS ORDERED: ONDANSETRON 4MG/2ML VIAL (J2405) As Ordered ONE (10:16)
[2019-09-03] MEDS ORDERED: PROPOFOL 200 MG/20 ML VIAL As Ordered ONE ×2 (10:16→13:24)
[2019-09-03] MEDS ORDERED: CLINDAMYCIN 600 MG/50 ML PREMIX BAG As Ordered ONE (10:48)
[2019-09-03] MEDS ORDERED: ceFAZolin 1GM INJ (J0690 PER 500MG) As Ordered ONE (10:53)
--- NOTE | 2019-09-03 10:53 | IPNPDOC ---
Text Note Date of Service The patient was seen on 09/03/19. NOTE SUBJECTIVE: Patient is seen at bedside. She will being to surgery this morning for excision of her LUE AV graft. There were no acute events overnight, her potassium is within normal limits. She denies chest pain, shortness of breath, nausea, vomiting, diarrhea, constipation, or leg swelling. OBJECTIVE: Vital signs: See below General: The patient is seen at bedside. She is pleasant and cooperative as well as awake, alert and oriented. She is comfortable and in no acute distress. Skin: Dark in color, somewhat jaundiced. HEENT: Sclerae are icteric. The patient has her own teeth and dentition is fair with some dental caries and caps but no missing teeth. Head is atraumatic, normocephalic. The patient makes good eye contact. Extraocular eye movements intact. Neck: Jugular venous pulsations are seen above the sternal angle, no masses. No thyromegaly. Heart: Regular rate and rhythm with a systolic murmur best appreciated at the second intercostal space left of the sternum without radiation into the carotids. No other gallops or rubs appreciated. Lungs: Clear to auscultation bilaterally. No wheezes, rhonchi or rales. Abdomen: Soft, nontender, nondistended. Normoactive bowel sounds. No masses to palpation. Extremities: Left upper extremity does have a bandage over it. There is a palpable thrill over the left AV graft, no bleeding, dressing is dry and intact. Right femoral tunnel catheter is in place, no oozing or overt bleeding noted. Vascular: The patient has multiple healed surgical sites in prior dialysis access sites noted in the bilateral upper extremities. Veins are easily palpable and hard to touch. Neurologic: The patient is moving all extremities freely, muscle strength is 5/5 bilaterally. Sensation is intact throughout. Cranial nerves II-XII grossly intact. No laboratory data or imaging was available for review. ASSESSMENT: This is an 83-year-old [place] female with end-stage renal disease on hemodialysis (Thursday, Thursday, Thursday) who is admitted due to a left upper extremity AV graft infection. She is postop day #2 status post right femoral Perma-Cath placement by Dr. Plasencia on 09/01/2019. PLAN: 1. Left upper extremity AV graft infection. POD# 2 s/p right common femoral vein Perma-Cath placed 09/01/[address] Plasencia. Blood cultures have been drawn, though she did receive 2 grams of Ancef during dialysis Thursday morning (09/02/19). The plan is for her to have removal of her AV graft in the left upper extremity and excision of the ulceration today (09/03/2019). She does have a history of MRSA in 2007, however her admission in 2018 showed MSSA. Blood cultures are pending, we will adjust antibiotics accordingly. 2. End-stage renal disease - on hemodialysis Thursday, Thursday, Thursday. We have consulted Dr. Rincon, appreciate his help. She did have 1.3 liters taken off Thursday morning (09/02/19), and her dialysis days are Thursday, Thursday, Thursday as mentioned above. Renal diet ordered. Continue home calcitriol 0.5 mcg by mouth three times per week, vitamin D3 1000 units by mouth daily, Renvela 800 mg by mouth with meals. 3. History of hyperkalemia. No labs were drawn at this morning dialysis session. Admission labs are pending. Will add Kayexalate as needed. 4. Hypertension. Continue her home amlodipine, hydralazine. Volume control per nephrology with dialysis. 5. Hyperlipidemia. Continue home atorvastatin 20 mg by mouth nightly. 6. Anemia of chronic kidney disease. Continue with home Velphoro 1000 mg by mouth with meals and Venofer 100 mg per 5 mL infusion three times a week with dialysis. 7. Secondary hyperparathyroidism. Continue home Sensipar 60 mg by mouth three times a week. 8. Heartburn: Continue TUMS as needed. 9. Deep vein thrombosis (DVT) prophylaxis. Heparin. DISPOSITION: Possible discharge home tomorrow pending how her surgery goes today VS,Fishbone, I+O VS, Fishbone, I+O Laboratory Tests 09/02/19 19:18 09/03/19 05:30 Vital Signs Date Time Temp Pulse Resp B/P (MAP) Pulse Ox O2 Delivery O2 Flow Rate FiO2 09/03/19 08:43 162/67 09/03/19 06:00 98.2 71 16 95 Room Air I&O- Last 24 Hours up to 6 AM 09/03/19 06:00 Intake Total 660 ml Output Total 0 ml Balance 660 ml GME ATTESTATION GME ATTESTATION My faculty preceptor for this patient encounter was physically present during the encounter and was fully available. All aspects of the patient interview, examination, medical decision making process, and medical care plan development were reviewed and approved by the faculty preceptor. The faculty preceptor is aware and concurs with the plan as stated in the body of this note and will attest to such by his/her cosignature. SKIP HUFFMAN D.O. Sep 03, 2019 10:53
[2019-09-03] MEDS ORDERED: SEVOFLURANE INHAL SOLN 250 ML BTL As Ordered ONE (12:17)
[2019-09-03] MEDS ORDERED: ACETAMINOPHEN TAB 650MG DOSE (2X325MG) PO PRN (14:45)
[2019-09-03] MEDS ORDERED: ONDANSETRON 4MG/2ML VIAL (J2405) IV PRN (14:45)
[2019-09-03] MEDS ORDERED: fentaNYL 100 MCG/2 ML INJECTION (J3010) IV PRN (14:45)
[2019-09-03] MEDS ORDERED: NS 1,000 ML IV SCH (14:45)
[2019-09-03] MEDS ORDERED: ACETAMINOPHEN TAB 650MG DOSE (2X325MG) As Ordered ONE (14:57)
[2019-09-03] MEDS ORDERED: PERCOCET 5MG/325MG TAB PO PRN (15:15)
--- NOTE | 2019-09-03 15:18 | ROOPDOC ---
[facility] Report Of Operation Report of Operation DATE OF PROCEDURE: 09/03/19 PREPROCEDURE DIAGNOSES: End-stage renal disease with ulceration over her left upper extremity AV graft with exposed graft POSTPROCEDURE DIAGNOSES: Same. PROCEDURE: 1. Excision of infected skin and graft; 14 cm skin and subcutaneous tissue excised and 20 cm of graft excised. 2. Placement of a tunneled left brachial axillary Artegraft, interposition between the brachial artery and the remaining PTFE graft at the shoulder SURGEON: Radha Plasencia MD ANESTHESIA: Local anesthesia 14 mL lidocaine. General anesthesia. INDICATION FOR PROCEDURE: This is a very pleasant 83-year-old patient with a complicated history of dialysis access. She has been on dialysis for 12 years, and during that time she has had multiple AV grafts in her bilateral upper extremities and lower extremities. She has occluded right and left jugular veins and left femoral vein. She has extensive collateral veins around the neck, ch est, abdomen, and left groin. She has a one-month history of ulceration over her left upper extremity brachial axillary graft with exposed graft. The dialysis nurses were still accessing the graft during that time, but accessing more proximally towards the shoulder. The patient denies any fevers or chills, and says she has just been cleaning the ulceration daily and putting a Band-Aid on it. She underwent placement of a right femoral vein PermCath on , dialysis Thursday, and then was admitted yesterday afternoon so we could bring her in this morning for a graft excision and possible placement of a graft. It is suboptimal to remove an infected graft in place another graft at the same surgery. The chance of the new graft getting infected is extremely high. Especially in such a thin patient with no real distance between the clean and the dirty areas. Unfortunately, the patient does not have options for dialysis access. Her veins and arteries are severely compromised by years of previous graft placements and removals. She has limited venous return to the heart. Despite having central vein occlusion, she has enough collateral circulation on the left to allow adequate dialysis per Dr. Rincon. When I discussed her case with him, he said so far her graft had been adequate for dialysis. Our tentative plan today will be to excise the skin and the distal aspect of the graft from the AV anastomosis to the mid arm. We will then attempt to tunnel a graft from the brachial artery to the old graft at the shoulder. If there is gross purulence or other concerns, we will not proceed with new graft placement. Risks benefits and alternatives to this procedure were explained to the patient and she is agreeable to proceed. Informed consent was obtained. REPORT OF OPERATION: The patient was brought to the operating room in stable condition and placed supine on the OR table. General anesthesia and antibiotics were administered without complication. Her left upper extremity to the axilla was prepped and draped in a sterile fashion. Ioban was placed. A timeout was performed. An elliptical incision was made around the ulcerated skin and this was excised and sent for culture. Culture swabs were also taken around the graft. A clamp was placed on the graft towards the AV anastomosis and towards the shoulder, and the graft was transected. The exposed area of graft, infected by definition due to exposure, was covered with gauze and then covered with Ioban. We left the known dirty portion of the case, utilized a gloves and instruments, and did our best to prevent cross contamination although this is nearly impossible due to the proximity to the infected area. The incision was extended over the brachial artery pulse. The incorporated portion of the graft that was not grossly infected was then carefully dissected from the soft tissues back to the brachial artery circumferentially. The brachial artery was skeletonized proximally and distally within the incision. This took some time due to dense scar tissues from multiple previous surgeries. Vesseloops replace proximally and distally on the brachial artery. Next, a small incision was made just distal to the shoulder over the graft. This was carried down to the subcutaneous tissues with Bovie cautery and we then carefully skeletonized the graft proximally and distally within the incision. The distal aspect was transected after a clamp was placed proximally near the shoulder. Following this, the distal end was dissected down the arm as far as possible and then oversewn with a 5-0 Prolene suture. Next, the proximal and was slightly beveled for anastomosis with a graft. We then tunneled a 7 mm Artegraft from the brachial artery to the shoulder incision. The brachial and the graft was beveled and narrowed to a 5 mm opening with 5-0 Prolene suture. We then secured the Vesseloops on the brachial artery and excised the graft at the old anastomosis from the artery, and then anastomosed the new Artegraft to the artery and an end-to-side fashion with running 5-0 Prolene suture. Before the final sutures were placed, a clamp was placed on the graft and we flushed the inflow and outflow artery. The anastomosis was irrigated with heparinized saline and the final sutures were placed. Flow was restored and the hand was warm and well- perfused. We then beveled at the distal end of the graft for a tension-free and and anastomosis with the existing graft at the shoulder. A 5-0 Prolene suture was used to anastomosis the 2 ends of the graft, and before the final sutures are placed we flushed the venous outflow as well as flushed the arterial inflow through the graft. Heparinized saline was used to irrigate the anastomosis in the final sutures are placed. Restored full first to the vein and through the arterial side. Good hemostasis was noted. Next, we dopplered over the graft and found excellent flow. It was a little pulsatile, but not significantly so. We expect some pulsatility due to limited venous outflow and central system. The hand had an excellent triphasic signal at the palmar arch. The fingers were warm and pink. We irrigated both incisions with copious amounts of saline. The deep and superficial tissues were approximated with running 3-0 Vicryl suture and the skin was closed with running subcuticular Monocryl suture. At the antecubital incision, we only closed 5 cm initially over the clean section of new graft and the brachial artery. The rest of the incision was left open so we could excise the infected graft as completely as possible within the incision. We turned our attention to this area after closing the other 2 incisions and dressing them with Mastisol and Steri-Strips. They infected graft was excised from the brachial artery to the mid arm with the help of Bovie cautery and sharp dissection. The graft was sent for culture. The tissues were copiously irrigated with saline. No purulence was noted during the infected graft excision. The tissue appeared grossly healthy and viable. We approximated the deep tissues with a running 3-0 Vicryl suture in the superficial tissues with a running 3-0 Vicryl suture. The skin was closed with running subcutaneous jugular Monocryl suture. Steri-Strips were placed over the incision. Both incisions were then dressed with dry gauze and Tegaderms. Following this the patient was extubated and taken to recovery in stable condition. SPECIMENS: Anaerobic and aerobic cultures were sent including a piece of the excised skin and the excise graft. ESTIMATED BLOOD LOSS: Approximately 50 mL. COMPLICATIONS: None. PLAN: Our plan is for the patient to continue dialyzing with her right femoral v ein PermCath for now. If the graft in the left upper extremity is stable, and her incisions are healing well, we may allow access of the AV graft in a week or two. For now, we will continue careful monitoring of her arm and incisions for signs of infection and poor wound healing. We will continue IV antibiotics, follow the cultures and adjust accordingly, and we will consult infectious disease to help us with consideration of long-term antibiotics to prevent infection of the new graft. The patient should have a high-protein diet to help with wound healing. Supplement shakes would be helpful. Although she will likely be hemodynamically stable for discharge tomorrow, I would like her to stay in the hospital through Thursday for an infectious disease consult at that time and for monitoring over the weekend of her incisions and left arm graft. RADHA PLASENCIA MD Sep 03, 2019 15:18
[2019-09-03] MEDS ORDERED: [UNRECOGNIZED DRUG - REMARK] XX SCH (16:00)
--- NOTE | 2019-09-03 16:16 | IPNPDOC ---
Date Seen The patient was seen on 09/03/19. Progress Note POSTOPERATIVE CHECK: Patient seen and examined. She is sitting up in bed eating her dinner. She says she is doing fine status post left upper extremity excision of infected skin graft, and new AV graft placement. Her incisions have minimal sanguinous shadowing, no hematomas are noted on her arm, and there is good flow noted on the graft with Doppler, and a triphasic signal at the palmar arch in her hand which is warm and well-perfused. Unfortunately, we are not sure if new graft placement will be successful in light of the infection of the excised graft, but we are hopeful that once her cultures come back and we can target her antibiotics that we may have a shot to prevent infection of the new graft, possibly with an extended course of antibiotics. We will discuss with our infectious disease colleagues on Thursday. For now, we will continue to monitor her closely. VS, I&O, 24H, Fishbone Vital Signs/I&O Vital Signs Date Time Temp Pulse Resp B/P (MAP) Pulse Ox O2 Delivery O2 Flow Rate FiO2 09/03/19 15:55 99.4 75 17 135/61 (85) 100 Room Air 09/03/19 15:00 2 I&O- Last 24 Hours up to 6 AM 09/03/19 06:00 Intake Total 660 ml Output Total 0 ml Balance 660 ml Laboratory Data 24H LABS Laboratory Tests 2 09/02/19 19:18: Nucleated Red Blood Cells % (auto) 0.0, Anion Gap 6L, Glomerular Filtration Rate 11.7L, Calcium Level 8.9, Phosphorus Level 4.2, Albumin 3.1L 09/03/19 05:30: Nucleated Red Blood Cells % (auto) 0.0, Anion Gap 13, Glomerular Filtration Rate 8.6L, Calcium Level 8.7L, Phosphorus Level 4.7, Albumin 3.0L CBC/BMP Laboratory Tests 09/02/19 19:18 09/03/19 05:30 Microbiology Microbiology 09/03/19 Gram Stain - Final, Resulted 09/03/19 Surgical Biopsy Culture, Resulted Pending 09/03/19 Anaerobic Culture, Resulted Pending 09/03/19 Gram Stain - Final, Resulted 09/03/19 Abscess Culture, Resulted Pending 09/03/19 Anaerobic Culture, Resulted Pending 09/02/19 Blood Culture, Received Pending 09/02/19 Blood Culture, Received Pending RADHA CARMONA MD Sep 03, 2019 16:16
[2019-09-03] MEDS: ATORVASTATIN 20 MG TAB PO SCH (20:21)
[2019-09-03] MEDS: ACETAMINOPHEN TAB 650MG DOSE (2X325MG) PO PRN (20:22)
[2019-09-03] MEDS ORDERED: HEPARIN SOD (PORCINE) 5000 UNITS/ML VIAL SQ SCH (21:00)
[2019-09-04] VITALS (7 sets, daily range): BP systolic 137–165; BP diastolic 64–68
[2019-09-04] MEDS ORDERED: DESMOPRESSIN ACETATE IV ONE (00:30)
[2019-09-04] MEDS ORDERED: NS IV ONE (00:30)
[2019-09-04 01:17] LABS: INR 1.25; PROTHROMBIN TIME 15.4 SECONDS (11.8-14.0)
[2019-09-04 06:17] LABS: HEMATOCRIT 27.3 % (36.0-47.0); HEMOGLOBIN 8.8 g/dl (12.0-15.5); MEAN CORPUSCULAR HGB CONC 32.2 g/dl (32.0-36.5); MEAN CORPUSCULAR VOLUME 102.2 fl (80.0-96.0); PLATELET COUNT, AUTOMATED 196 10^3/uL (150-450); RED BLOOD COUNT 2.67 10^6/uL (4.00-5.40); WHITE BLOOD COUNT 5.2 10^3/uL (4.0-10.0)
[2019-09-04 06:28] LABS: INR 1.19; PROTHROMBIN TIME 14.8 SECONDS (11.8-14.0)
[2019-09-04 06:45] LABS: CREATININE FOR GFR 7.08 MG/DL (0.55-1.30); GLOMERULAR FILTRATION RATE 5.9 (>32)
[2019-09-04 06:46] LABS: ALBUMIN 2.8 GM/DL (3.2-5.2); CALCIUM LEVEL 8.9 MG/DL (8.8-10.2); PHOSPHORUS LEVEL 6.3 MG/DL (2.5-4.9); POTASSIUM SERUM 4.4 MEQ/L (3.5-5.1)
[2019-09-04] MEDS: SUCROFERRIC OXYHYDROXIDE 500MG CHEW TAB (VELPHORO) PO SCH ×3 (08:52→17:16)
[2019-09-04] MEDS: (RENVELA) SEVELAMER **CARBONate** 800 MG TAB PO SCH ×3 (08:53→17:16)
[2019-09-04] MEDS: VITAMIN D 1,000 INTERNATIONAL UNITS TABLET PO SCH (08:53)
[2019-09-04] MEDS: **hydrALAZINE** 10 MG TAB PO SCH ×2 (08:54→21:08)
[2019-09-04] MEDS: amLODIPine 5 MG TAB PO SCH (08:54)
--- NOTE | 2019-09-04 10:12 | CR ---
DATE OF CONSULTATION: 09/03/[address] GERONIMO STREETER REASON FOR CONSULTATION: To assist in the management of end-stage renal disease. HISTORY OF PRESENT ILLNESS: Mrs. Robbins is an 83-year-old very pleasant lady with end-stage renal disease, history of hepatitis B, history of anemia, history of secondary hyperparathyroidism, history of chronic hyperkalemia and dyslipidemia. She has had multiple problems with her AV grafts and fistulas in the past with infections and now currently has a left upper arm AV graft which was being used for dialysis. She was noticed to have an area of infection and ulceration with grafts visible through the skin hole. It was felt that her graft was infected and she was seen by Dr. Plasencia. The patient is now admitted for excision of her infected graft. She underwent a femoral vein PermaCath placement after failing for PermaCath in both right and left internal jugular veins. She was last dialyzed yesterday and is scheduled for surgery of her left arm AV graft today. Nephrology consultation was requested and the patient is seen this morning. PAST MEDICAL HISTORY (Significant for): 1. End-stage renal disease, on maintenance hemodialysis three times a week. 2. Hypertension. 3. Hepatitis C. 4. Dyslipidemia. 5. Recurrent hyperkalemia. 6. Secondary hyperparathyroidism. 7. Anemia of chronic renal failure. 8. 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 PAST SURGICAL HISTORY (Significant for): Bilateral cataract surgery, multiple dialysis access surgeries, esophagogastroduodenoscopy (EGD) and colonoscopy. ALLERGIES: She has multiple drug allergies including VANCOMYCIN, CALCITRIOL, IODINE, CONTRAST MEDIA and LATEX. MEDICATIONS: Her home medications include amlodipine 5 mg daily, atenolol 50 mg daily, atorvastatin 20 mg daily, vitamin D 1000 units daily, Sensipar 30 mg daily, hydralazine 25 mg twice a day, Benadryl 25 mg as needed for itch, Renvela 1600 mg three times a day with meals, Nephro-Venkata 1 tablet daily, Tylenol 650 mg as needed for pain, and Tums 1000 mg as needed for heartburn. 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 She has no history of smoking or drug use. FAMILY HISTORY: Noncontributory. REVIEW OF SYSTEMS: The patient denies any fever or chills. She is very compliant with the dialysis treatment. Eyes, ears, nose and throat are unremarkable. Cardiovascular system is significant for hypertension. She denies any chest pain, dyspnea or leg edema. Respiratory system negative for cough or hemoptysis. GI system is negative for nausea, vomiting or diarrhea. system is negative for dysuria or hematuria. Hematological system is significant for chronic anemia. She denies any bleeding issues. GI system is also significant for history of hepatitis B. Musculoskeletal system negative for leg edema. Psychosocial system negative for depression and anxiety. Neurological system is negative for seizures or stroke. Endocrine system is negative for diabetes or thyroid problems. She has secondary hyperparathyroidism. PHYSICAL EXAMINATION: The patient is awake and alert sitting in the chair at the time of my visit. Temperature 98.4 degrees Fahrenheit, heart rate 84 per minute and respiratory rate 16 per minute. Blood pressure 135/60 mmHg and oxygen saturation 100% on room air. Head is atraumatic. Neck is supple and without jugular venous distention (JVD) or thyroid enlargement. Heart sounds are regular with a systolic murmur grade 1/6. Lungs: Clear to auscultation. Abdomen: Soft and nontender. Bowel sounds are normal. Extremities: Without any cyanosis or clubbing. Left upper arm AV graft is patent and the infected area is covered with a dressing. I did not open the dressing. Neurologically, she is awake, alert and oriented times three. LABORATORY DATA: Her WBC count is 4.4, hemoglobin 9.8 and hematocrit 31.4. Platelets 209. Sodium 138, potassium 4.0, chloride 97, CO2 28, BUN 28 and creatinine 5.07. Glucose 95 and calcium 8.7. Phosphorus is 4.7 and albumin 3.0. PROBLEMS: 1. End-stage renal disease. The patient is regularly dialyzed on Thursday, Thursday and Thursday schedule. She was dialyzed yesterday and we will plan to dialyze her again on Thursday. At present, her volume status is well-compensated and electrolytes are within normal range. There is no emergent need for dialysis today. 2. Hypertension. Blood pressure seems to be reasonably well-controlled and her chronic antihypertensive medications are appropriate, which should be continued. 3. Anemia. She has chronic anemia due to end-stage renal disease which is stable at baseline and we will monitor closely. No urgent intervention is indicated. 4. Infected graft left arm. She does have exposed graft which is technically infected, but she does not have any fever and blood cultures have been negative. She has allergy to vancomycin, so we gave her Ancef yesterday. She had a PermaCath placed as her graft is not likely to be usable after surgery. She is going to have resection of her infected graft today. Thank you for involving me in the care of Mrs. Robbins. I will follow her along with you.
--- NOTE | 2019-09-04 10:35 | IPNPDOC ---
Text Note Date of Service The patient was seen on 09/04/19. NOTE SUBJECTIVE: Patient seen and examined at bedside. Overnight events significant for bleeding at right femoral cath site. Patient has no new medical complaints. Objective: Vital signs: See below General: NAD, lying comfortably in bed, in good spirits HEENT: NC/AT, EOMI, PERRL Lungs: CTA B/L Heart: +S1S2, systolic murmur Abd: soft, NT, +BS Extremities: Left upper extremity does have a bandage over it. There is a palpable thrill over the left AV graft, no bleeding, dressing is dry and intact. Right femoral tunnel catheter is in place, bandages in place Vascular: The patient has multiple healed surgical sites in prior dialysis access sites noted in the bilateral upper extremities. Veins are easily palpable and hard to touch. Neurologic: no gross focal deficits A/P: 83 yo female with ESRD/HD-MWF, admitted for LUE AV graft infection. She is postop day #3 s/p right femoral Perma-Cath placement by Dr. Plasencia on 09/01/2019. # LUE AV graft infection - POD#3 right common femoral vein Perma-Cath placed 09/01/[address] Plasencia - BCx negative to date - she did receive 2 grams of Ancef during dialysis Thursday morning (09/02/19) - s/p removal of LUE AV graft - 09/03/19 - vanc allergy - on meropenem #ESRD/HD-MWF - follow as per nephrology - assistance appreciated - She did have 1.3 liters taken off Thursday morning (09/02/19) - continue home calcitriol 0.5 mcg by mouth three times per week, vitamin D3 1000 units by mouth daily, Renvela 800 mg by mouth with meals. #bleeding - continue to monitor H/H - no need for transfusion at this time - transition to mechanical prophylaxis #Hypertension. Continue her home amlodipine, hydralazine. #Hyperlipidemia. Continue home atorvastatin 20 mg by mouth nightly. #Anemia of chronic kidney disease. Continue with home Velphoro 1000 mg by mouth with meals and Venofer 100 mg per 5 mL infusion three times a week with dialysis. #Secondary hyperparathyroidism. Continue home Sensipar 60 mg by mouth three times a week. # Deep vein thrombosis (DVT) prophylaxis. mechanical DISPOSITION: pending clinical improvement VS,Darlyn, I+O VS, Darlyn, I+O Laboratory Tests 09/04/19 05:49 Vital Signs Date Time Temp Pulse Resp B/P (MAP) Pulse Ox O2 Delivery O2 Flow Rate FiO2 09/04/19 08:54 165/68 09/04/19 08:54 79 09/04/19 06:00 98.7 17 95 Room Air 09/03/19 15:00 2 I&O- Last 24 Hours up to 6 AM 09/04/19 06:00 Intake Total 868.6 ml Output Total 50 ml Balance 818.6 ml GERONIMO STREETER MD Sep 04, 2019 10:35
[2019-09-04] MEDS ORDERED: MEROPENEM INJ 1 GM in IV 1 EA IV ONE (11:00)
--- NOTE | 2019-09-04 11:52 | IPNPDOC ---
Date Seen The patient was seen on 09/04/19. Progress Note Patient seen and examined. Doing well today. Overnight, she had some oozing from her right thumb cath on multiple occasions. I think this is due to the patient being very sensitive to heparin. She did receive heparin for DVT prophylaxis perioperatively, and an additional 5000 units of heparin intraoperatively for graft replacement. We noted that she was very oozy intraoperatively, but we acce pt that in order to maintain perfusion through the brachial artery and to the hand and through the new graft. She had minimal oozing on her arm postop, but then rolled over in the bed and noted she had significant bleeding on her mattress pad. The nurses held pressure and I asked them to hold her heparin and check a PTT in the morning. Her PTT was 40, which is a bit elevated considering all she has had his DVT prophylaxis, so I think she is just sensitive to the anticoagulation. For now, we will continue to hold the heparin and minimize her activity. She does not need to be on bedrest, but I would only get her up to the bathroom and then elevate her leg to diminish venous pressures. If she doesn't have any other bleeding episodes today or overnight, tomorrow he will resume activity as tolerated. The patient would like to go home today, but I told her since her nephew is out of town and she doesn't have any other family here, and she had the bleeding overnight, and we have such a tenuous situation with the new graft in her left arm, and since ID has not yet seen her, I would prefer if she stays at least 1 more day possibly longer depending on the situation. She is agreeable to this. I did speak with Dr. Denson this morning and she recommended starting meropenem for gram-negative nathalie coverage. She will be happy to consult tomorrow and add further recommendations as appropriate. Unfortunately, we are so very limited and options for access in this patient, and any functional axis we have we need to salvage if possible. It is unclear to me if a new access so close to the area of previous infected tissue is going to be successful, but with possibly a longer course of IV antibiotics we may be able to maintain the new graft without infection. On exam today, she does have a bit of swelling in the left upper extremity but we did a very extensive dissection. Her incisions are all clean dry and intact with minimal oozing on the dressings. She has an excellent flow on Doppler over the new Artegraft. Her hand is warm and well- perfused. Her right thigh catheter today is clean dry and intact with no new oozing on the dressing. The dressing was sterilely replaced with 4 x 4's and a bit of tension on the Tegaderm to create a bit of pressure dressing to help maintain hemostasis. We will ask the dialysis nurse to replace the dressing tomorrow with just the chlorhexidine dressing during her regular dialysis time. The patient was extensively counseled and is agreeable to this plan. All questions were answered. VS, I&O, 24H, Fishbone Vital Signs/I&O Vital Signs Date Time Temp Pulse Resp B/P (MAP) Pulse Ox O2 Delivery O2 Flow Rate FiO2 09/04/19 10:00 98.1 82 24 150/68 (95) 94 Room Air 09/03/19 15:00 2 I&O- Last 24 Hours up to 6 AM 09/04/19 06:00 Intake Total 868.6 ml Output Total 50 ml Balance 818.6 ml Laboratory Data 24H LABS Laboratory Tests 2 09/04/19 00:48: Prothrombin Time 15.4H, Prothromb Time International Ratio 1.25 09/04/19 05:49: Prothrombin Time 14.8H, Prothromb Time International Ratio 1.19, Nucleated Red Blood Cells % (auto) 0.0, Activated Partial Thromboplast Time 40.0H, Anion Gap 11, Glomerular Filtration Rate 5.9L, Calcium Level 8.9, Phosphorus Level 6.3#H, Albumin 2.8L CBC/BMP Laboratory Tests 09/04/19 05:49 Microbiology Microbiology 09/03/19 Gram Stain - Final, Resulted 09/03/19 Surgical Biopsy Culture, Resulted Pending 09/03/19 Anaerobic Culture, Resulted Pending 09/03/19 Gram Stain - Final, Resulted 09/03/19 Abscess Culture, Resulted Pending 09/03/19 Anaerobic Culture, Resulted Pending 09/02/19 Blood Culture - Preliminary, Resulted No growth after 24 hours . All specim... 09/02/19 Blood Culture - Preliminary, Resulted No growth after 24 hours . All specim... RADHA CARMONA MD Sep 04, 2019 11:52
[2019-09-04] MEDS: [UNRECOGNIZED DRUG - REMARK] XX SCH (13:46)
[2019-09-04] MEDS: ACETAMINOPHEN TAB 650MG DOSE (2X325MG) PO PRN (14:07)
[2019-09-04] MEDS: ATORVASTATIN 20 MG TAB PO SCH (21:08)
[2019-09-05 05:50] VITALS: BP 134/62
[2019-09-05 05:56] LABS: HEMATOCRIT 26.1 % (36.0-47.0); HEMOGLOBIN 8.5 g/dl (12.0-15.5); MEAN CORPUSCULAR HEMOGLOBIN 32.9 pg (27.0-33.0); MEAN CORPUSCULAR HGB CONC 32.6 g/dl (32.0-36.5); MEAN CORPUSCULAR VOLUME 101.2 fl (80.0-96.0); PLATELET COUNT, AUTOMATED 188 10^3/uL (150-450); RED BLOOD COUNT 2.58 10^6/uL (4.00-5.40); WHITE BLOOD COUNT 5.7 10^3/uL (4.0-10.0)
[2019-09-05 06:27] LABS: ALBUMIN 2.6 GM/DL (3.2-5.2); CREATININE FOR GFR 9.14 MG/DL (0.55-1.30); GLOMERULAR FILTRATION RATE 4.4 (>32); PHOSPHORUS LEVEL 5.2 MG/DL (2.5-4.9); POTASSIUM SERUM 5.2 MEQ/L (3.5-5.1)
[2019-09-05] MEDS: **hydrALAZINE** 10 MG TAB PO SCH ×2 (06:39→20:43)
[2019-09-05] MEDS: amLODIPine 5 MG TAB PO SCH (06:39)
[2019-09-05] MEDS: VITAMIN D 1,000 INTERNATIONAL UNITS TABLET PO SCH (06:40)
[2019-09-05] MEDS: (RENVELA) SEVELAMER **CARBONate** 800 MG TAB PO SCH ×3 (08:28→17:33)
[2019-09-05] MEDS: SUCROFERRIC OXYHYDROXIDE 500MG CHEW TAB (VELPHORO) PO SCH ×3 (08:28→17:33)
[2019-09-05] MEDS ORDERED: CALCITRIOL 0.25 MCG CAP (S0169) PO SCH (09:00)
[2019-09-05] MEDS ORDERED: MEROPENEM INJ 1 GM in IV 1 EA IV SCH (09:00)
[2019-09-05] MEDS ORDERED: CINACALCET 30 MG TAB (SENSIPAR) PO SCH (09:00)
[2019-09-05] MEDS ORDERED: HEPARIN 1,000 UNITS/ML 10ML VIAL (FOR RADIOLOGY& DIALYSIS ONLY) IV ONE (11:00)
[2019-09-05] MEDS ORDERED: HEPARIN 1,000 UNITS/ML 10ML VIAL (FOR RADIOLOGY& DIALYSIS ONLY) XX ONE (11:00)
[2019-09-05 15:04] LABS: C REACTIVE PROTEIN QUANTITATIV 5.43 MG/DL (0.00-0.30)
[2019-09-05] MEDS: [UNRECOGNIZED DRUG - REMARK] XX SCH (16:00)
--- NOTE | 2019-09-05 16:03 | IPNPDOC ---
Text Note Date of Service The patient was seen on 09/05/19. NOTE Vascular Surgery Dr Plasencia. Patient seen and examined. Doing well today. Sitting on the side of the bed. Having breakfast. Status post left upper extremity excision of infected skin graft, and new AV graft placement. Denies pain in the left upper extremity. States swelling is slightly improved. The patient is afebrile. No leukocytosis. Her left upper extremity dressings are intact. Her hand is warm and well- perfused. Her right thigh catheter with no new oozing on the dressing. The patient is going to dialysis today. Plan is for dialysis today. Continue to closely monitor left upper extremity AV graft placement. Continue to closely monitor for bleeding or drainage. Plan is to continue with IV antibiotics with dialysis. Infectious disease assistance appreciated. VS,Darlyn, I+O VS, Darlyn, I+O Laboratory Tests 09/05/19 05:39 Vital Signs Date Time Temp Pulse Resp B/P (MAP) Pulse Ox O2 Delivery O2 Flow Rate FiO2 09/05/19 08:57 18 Room Air 09/05/19 06:39 134/62 09/05/19 06:39 80 09/05/19 05:50 98.3 92 09/03/19 15:00 2 I&O- Last 24 Hours up to 6 AM 09/05/19 06:00 Intake Total 1724 ml Output Total 225 ml Balance 1499 ml Tracy Figueredo Sep 05, 2019 16:03
[2019-09-05] MEDS ORDERED: ceFAZolin SOD 2 GM in IV 1 EA IV SCH (16:45)
[2019-09-05] MEDS ORDERED: ceFAZolin SOD 2 GM in D5W MINI-BAG PLUS 50 ML IV SCH (17:00)
--- NOTE | 2019-09-05 18:02 | IPNPDOC ---
Date Seen The patient was seen on 09/05/19. Progress Note SUBJECTIVE: Patient is a 83-year-old female with ESRD on hemodialysis who is admitted for left upper extremity AV graft infection. Patient states she is feeling well this morning. She denies any pain in her left upper extremity. She denies chest pain, shortness of breath, nausea, vomiting, diarrhea, constipation, or leg swelling. OBJECTIVE PHYSICAL EXAMINATION: VITAL SIGNS: Please see below. GENERAL: Alert, comfortable lying in bed, in no acute distress HEENT: Normocephalic, atraumatic, moist mucous membranes, sclera anicteric NECK: Supple, trachea midline, no lymphadenopathy, no JVD CARDIOVASCULAR: Regular rate and rhythm, normal S1 and S2. Systolic ejection murmur 2/6 over the upper sternal border RESPIRATORY: Clear to auscultation bilaterally with equal air entry bilaterally. No wheezing, rhonchi, or rales. ABDOMEN: Soft, nontender, nondistended, bowel sounds present, no masses or hepatosplenomegaly appreciated EXTREMITIES: No cyanosis or edema. Pulses 2+/4 in bilateral upper and lower extremities bandage present over the left upper extremity, dressing is dry and intact without drainage or bleeding. Right femoral catheter is in place. NEUROLOGIC: Alert and oriented 3 to person, place and time. Cranial nerves 2-12 grossly intact. No focal deficits appreciated PSYCHIATRIC: Mood and affect appropriate LABORATORY DATA, IMAGING STUDIES, MICROBIOLOGY: Please see below. ASSESSMENT AND PLAN: 83-year-old female with ESRD on hemodialysis who is admitted for left upper extremity AV graft infection, POD #4 right femoral permacath placement and POD #2 left AV graft removal and ulceration excision PROBLEMS: # LUE AV graft infection - POD#4 right common femoral vein Perma-Cath placed 09/01/[address] Plasencia - POD#2 removal of LUE AV graft - 09/03/[address] Plasencia - Blood cultures x2 resulted as positive for Proteus Mirabilis - vanc allergy - started on meropenem, switched to cefazolin IV based on sensitivities, day #2 of 7 of antibiotics #ESRD/HD-MWF - Consulted nephrology, appreciate their assistance and recommendations - continue home calcitriol 0.5 mcg by mouth three times per week, vitamin D3 1000 units by mouth daily, Renvela 800 mg by mouth with meals. #bleeding - continue to monitor H/H daily - no need for transfusion at this time - continue to mechanical DVT prophylaxis #Hypertension. - Continue her home amlodipine, hydralazine. #Hyperlipidemia. - Continue home atorvastatin 20 mg by mouth nightly. #Anemia of chronic kidney disease. - Continue with home Velphoro 1000 mg by mouth with meals and Venofer 100 mg per 5 mL infusion three times a week with dialysis. #Secondary hyperparathyroidism. - Continue home Sensipar 60 mg by mouth three times a week. DVT prophylaxis: JOANA stockings and sequentials DISPOSITION: likely d/c tomorrow on IV antibiotics with dialysis to complete course VS, I&O, 24H, Fishbone Vital Signs/I&O Vital Signs Date Time Temp Pulse Resp B/P (MAP) Pulse Ox O2 Delivery O2 Flow Rate FiO2 09/05/19 08:57 18 Room Air 09/05/19 06:39 134/62 09/05/19 06:39 80 09/05/19 05:50 98.3 92 09/03/19 15:00 2 I&O- Last 24 Hours up to 6 AM 09/05/19 06:00 Intake Total 1724 ml Output Total 225 ml Balance 1499 ml Laboratory Data 24H LABS Laboratory Tests 2 09/05/19 05:39: Nucleated Red Blood Cells % (auto) 0.0, Anion Gap 13, Glomerular Filtration Rate 4.4L, Calcium Level 9.0, Phosphorus Level 5.2H, C-Reactive Protein, Quantitative 5.43H, Albumin 2.6L CBC/BMP Laboratory Tests 09/05/19 05:39 Microbiology Microbiology 09/03/19 Gram Stain - Final, Resulted 09/03/19 Surgical Biopsy Culture - Final, Resulted Proteus Mirabilis 09/03/19 Anaerobic Culture, Resulted Pending 09/03/19 Gram Stain - Final, Resulted 09/03/19 Abscess Culture - Final, Resulted Proteus Mirabilis 09/03/19 Anaerobic Culture, Resulted Pending 09/02/19 Blood Culture - Preliminary, Resulted No Growth after 48 hours. All Specime... 09/02/19 Blood Culture - Preliminary, Resulted No Growth after 48 hours. All Specime... GME ATTESTATION GME ATTESTATION My faculty preceptor for this patient encounter was physically present during the encounter and was fully available. All aspects of the patient interview, examination, medical decision making process, and medical care plan development were reviewed and approved by the faculty preceptor. The faculty preceptor is aw are and concurs with the plan as stated in the body of this note and will attest to such by his/her cosignature. ATTENDING NOTE Patient was seen and examined by me this morning with the residents. Agree with the above assessment and plan MARIO ALBERTO CHRISTENSEN D.O. Sep 05, 2019 18:02 GEOFFREY ROSS MD Sep 07, 2019 08:48
--- NOTE | 2019-09-05 19:10 | IPN ---
DATE: 09/04/2019 Mrs. Robbins is seen this morning on her bedside. She reports that last night she felt wet in the bed and was noticed to have bleeding from her right femoral Perma-Cath. She had left arm arteriovenous (AV) graft surgery yesterday for infected graft and had part of her graft resected and revised. She denies any pain in her arm. PHYSICAL EXAMINATION: Temperature 98 degrees Fahrenheit, heart rate 82 per minute, and respiratory rate 24 per minute. Blood pressure 150/68 mmHg and oxygen saturation 94% on room air. Head is atraumatic. Neck is supple and without jugular venous distention (JVD) or thyroid enlargement. Heart sounds are regular and lungs clear to auscultation. Abdomen: Soft and nontender. Bowel sounds normal. Extremities: Without any cyanosis or clubbing. Left arm AV graft is patent and surgical dressing site is clean. Her right femoral vein Perma-Cath is also clean with intact dressing and no active bleeding. Neurologically, she is awake, alert and oriented times three. Today's labs show WBC count 5.2, hemoglobin 8.8 and hematocrit 27.3. Platelets 196. A repeat hemoglobin at noon is now 9.2. Sodium 133, potassium 4.4, CO2 26, BUN 46 and creatinine 7.08. Calcium 8.9 and phosphorus 6.3. PROBLEMS: 1. End-stage renal disease. The patient was dialyzed on Thursday last time and is due for dialysis tomorrow. If she is still in the hospital, then we can dialyze her here. 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 At this point,there is no emergent indication for dialysis today. 2. Anemia with acute blood loss. She had some bleeding from her Perma-Cath site last night and dropped her hemoglobin slightly. A repeat hemoglobin is a little better now and should be repeated again tomorrow morning. There is no emergent indication for a transfusion. 3. Hypertension. Blood pressure is reasonably well controlled on current antihypertensive meds and no changes are being made today. 4. Infected left arm AV graft. She had an exposed area of graft, which was felt to be infected and has been resected. She has a Perma-Cath in right femoral vein, which is currently being used for dialysis. Once her wound starts healing and vascular surgery gives clearance, then we can start using her left arm graft.
[2019-09-05] MEDS: ATORVASTATIN 20 MG TAB PO SCH (20:43)
[2019-09-05 22:00] VITALS: BP 134/63
[2019-09-06 05:27] VITALS: BP 160/74
[2019-09-06 07:23] LABS: HEMATOCRIT 26.4 % (36.0-47.0); HEMOGLOBIN 8.5 g/dl (12.0-15.5); MEAN CORPUSCULAR HEMOGLOBIN 33.2 pg (27.0-33.0); MEAN CORPUSCULAR HGB CONC 32.2 g/dl (32.0-36.5); MEAN CORPUSCULAR VOLUME 103.1 fl (80.0-96.0); PLATELET COUNT, AUTOMATED 187 10^3/uL (150-450); RED BLOOD COUNT 2.56 10^6/uL (4.00-5.40); WHITE BLOOD COUNT 5.8 10^3/uL (4.0-10.0)
[2019-09-06 07:58] LABS: ALBUMIN 2.6 GM/DL (3.2-5.2); CALCIUM LEVEL 8.8 MG/DL (8.8-10.2); CREATININE FOR GFR 5.53 MG/DL (0.55-1.30); GLOMERULAR FILTRATION RATE 7.8 (>32); PHOSPHORUS LEVEL 3.3 MG/DL (2.5-4.9); POTASSIUM SERUM 4.9 MEQ/L (3.5-5.1)
[2019-09-06] MEDS: VITAMIN D 1,000 INTERNATIONAL UNITS TABLET PO SCH (08:57)
[2019-09-06] MEDS: SUCROFERRIC OXYHYDROXIDE 500MG CHEW TAB (VELPHORO) PO SCH (08:57)
[2019-09-06] MEDS: (RENVELA) SEVELAMER **CARBONate** 800 MG TAB PO SCH (08:57)
[2019-09-06 08:58] VITALS: BP 160/74
[2019-09-06] MEDS: **hydrALAZINE** 10 MG TAB PO SCH (08:58)
[2019-09-06] MEDS: amLODIPine 5 MG TAB PO SCH (08:58)
--- NOTE | 2019-09-06 09:32 | IPN ---
DATE OF VISIT: 09/05/2019 Mrs. Robbins is seen this morning on her bedside. She is feeling well and denies any complaints. She is able to lift her left arm up now and denies any pain. There is no more bleeding from her PermaCath site. She denies any dyspnea, chest pain, fever, chills, nausea or vomiting. On physical exam, temperature 98.3 degrees Fahrenheit, heart rate 80 per minute and respiratory rate 18 per minute. Blood pressure 134/62 mmHg and oxygen saturation 92%. Head is atraumatic. Neck is supple and without jugular venous distention (JVD) or thyroid enlargement. Heart sounds regular and lungs sound clear to auscultation. Abdomen soft and nontender, and bowel sounds normal. Extremities without any cyanosis or clubbing. Left upper arm atrioventricular (AV) graft is patent and surgical incision is clean. She has a PermaCath in right groin area on right thigh, which is without any active bleeding. Neurologically, she is at her baseline mentation. Today's labs show WBC count 5.7, hemoglobin 8.5 and hematocrit 26.1. Sodium 133, potassium 5.2, CO2 24, BUN 66 and creatinine 9.14. Calcium 9.0 and phosphorus 5.2. PROBLEMS: 1. End-stage renal disease. Patient is regularly dialyzed on Thursday, Thursday and Thursday schedule. She will be dialyzed this afternoon and we will use her right thigh PermaCath. 2. Infected AV graft. Patient had resection of infected graft and a revision done. Her graft is patent and we likely will be using it within the next couple of weeks. At present, she has a PermaCath for temporary use, which is currently going to be used today. 3. Acute blood loss anemia. She had some bleeding from the catheter site yesterday, which has now stopped. She is going to be receiving iron during dialysis and there is no emergent need for a transfusion. 4. Hyperkalemia. She has mild hyperkalemia and will be dialyzed with 2.0 mEq bath, which will correct her hyperkalemia. 5. Infected AV graft. The patient has been afebrile and graft has been resected and she remains on meropenem 1 gram after each dialysis.
--- NOTE | 2019-09-06 09:42 | IPNPDOC ---
Date Seen The patient was seen on 09/06/19. Progress Note Patient seen and examined. She is sitting up at the edge of the bed eating breakfast. She said she did well with her right thigh femoral vein catheter at dialysis yesterday. She says her left upper extremity has minimal pain. On exam, there is increased swelling today of the upper arm, but no fluctuance noted. There is a little bruising around the proximal incision at the shoulder, but no hematoma noted. There is also some bruising in the area of extensive dissection were the graft was excised and replaced, but no fluctuance or signs of hematoma. Her forearm is also a bit swollen. She has a mild erythema of the forearm but I think this is just from surgery and dissection. No induration or obvious cellulitis is present. There is good flow through the graft. I removed and replaced the Steri-Strips on the distal incision at the antecubital because they were loosely attached due to serous drainage. I cleaned the area thoroughly, skin prepped, and replaced Steri-Strips. I covered this with gauze and paper tape. The patient can replace the gauze and paper tape daily at home. The small skin tear on her forearm is stable and we can leave the op site intact until it heals. The shoulder can be left open with just Steri-Strips. She should elevate her left upper extremity above the level of the heart at least 30 minutes 3 times a day, but as much as possible would be helpful. She will continue IV antibiotics with dialysis per Dr. Stiles instructions. We would like to see her back in clinic next week to make sure she is doing okay, if possible. Her arm will need significantly less swelling before we can access the graft. A minimum of one week to heal is required, but we will see how she does since she had such an extensive dissection and now has so much swelling. VS, I&O, 24H, Fishbone Vital Signs/I&O Vital Signs Date Time Temp Pulse Resp B/P (MAP) Pulse Ox O2 Delivery O2 Flow Rate FiO2 09/06/19 08:58 160/74 09/06/19 08:58 81 09/06/19 05:27 98.4 20 95 Room Air 09/03/19 15:00 2 I&O- Last 24 Hours up to 6 AM 09/06/19 06:00 Intake Total 700 ml Output Total 1500 ml Balance -800 ml Laboratory Data 24H LABS Laboratory Tests 2 09/06/19 07:11: Nucleated Red Blood Cells % (auto) 0.0, Anion Gap 7L, Glomerular Filtration Rate 7.8L, Calcium Level 8.8, Phosphorus Level 3.3#, Albumin 2.6L CBC/BMP Laboratory Tests 09/06/19 07:11 Microbiology Microbiology 09/03/19 Gram Stain - Final, Resulted 09/03/19 Surgical Biopsy Culture - Final, Resulted Proteus Mirabilis 09/03/19 Anaerobic Culture, Resulted Pending 09/03/19 Gram Stain - Final, Resulted 09/03/19 Abscess Culture - Final, Resulted Proteus Mirabilis 09/03/19 Anaerobic Culture, Resulted Pending 09/02/19 Blood Culture - Preliminary, Resulted No Growth after 72 hours. All specime... 09/02/19 Blood Culture - Preliminary, Resulted No Growth after 72 hours. All specime... RADHA CARMONA MD Sep 06, 2019 09:42
--- NOTE | 2019-09-06 13:24 | DS.PDOC ---
Discharge Summary General Date of Admission Sep 02, 2019 at 13:32 Date of Discharge 09/06/2019 Primary Care Physician: Dick Rincon MD Attending Physician: GEOFFREY ROSS MD Specialist/Consultants Involve: RADHA CARMONA MD Specialist/Consultants Involve Ryan Denson MD, Khalid MD Discharge Summary PROCEDURES PERFORMED DURING STAY: Left AV graft removal and ulceration excision ADMITTING DIAGNOSES: 1. Left upper extremity AV graft infection. 2. End-stage renal disease on hemodialysis. 3. Hx of Hyperkalemia 4. Hypertension 5. Hyperlipidemia 6. Anemia of chronic disease 7. Secondary hyperparathyroidism 8. Heartburn DISCHARGE DIAGNOSES: 1. Left upper extremity AV graft infection. 2. End-stage renal disease on hemodialysis. 3. Hx of Hyperkalemia 4. Hypertension 5. Hyperlipidemia 6. Anemia of chronic disease 7. Secondary hyperparathyroidism 8. Heartburn COMPLICATIONS/CHIEF COMPLAINT: Infected Fistula. HISTORY OF PRESENT ILLNESS: Coleman Robbins is an 83-year-old female who presented to the emergency department without significant physical activity after noticing pus draining from her left upper extremity AV graft for about a month. She states that the dialysis nurse did point this out to her. She also had reports a history of prior graft infections. The patient was set up with the vascular surgeon for urgent appointment for evaluation of her AV fistula graft. During that outpatient appointment, the patient was set up for urgent catheter placement with Dr. Seiter. Rock and she was able to place a right femoral vein catheter for continued dialysis. Because of concern of infection at the AV fistula site, the patient was sent to the hospital for direct admission with the hospitalist team. HOSPITAL COURSE: The patient was admitted to the hospital and scheduled for AV graft revision with excision of the ulceration. She was continued on her regular dialysis schedule via the right femoral vein permacath which was placed prior to admission. Infectious disease was consulted for empiric antibiotic treatment as the patient has a vancomycin allergy. The patient was started on IV meropenem for empiric antibiotics. Blood cultures remained negative after 72 hours. Wound cultures from the surgical excision were positive for Proteus Mirabilis with a broad range of sensitivities. Antibiotic with coverage was switched to IV cefazolin based on the sensitivity results. On the day of discharge, patient will be stable to discharge home. She will continue on IV antibiotics to be g iven on her dialysis days, which are Thursday, Thursday and Thursday. DISCHARGE MEDICATIONS: Please see below. ALLERGIES: Please see below. PHYSICAL EXAMINATION ON DISCHARGE: VITAL SIGNS: Please see below. GENERAL: Alert, comfortable lying in bed, in no acute distress HEENT: Normocephalic, atraumatic, moist mucous membranes, sclera anicteric NECK: Supple, trachea midline, no lymphadenopathy, no JVD CARDIOVASCULAR: Regular rate and rhythm, normal S1 and S2. Systolic ejection murmur 2/6 over the upper sternal border RESPIRATORY: Clear to auscultation bilaterally with equal air entry bilaterally. No wheezing, rhonchi, or rales. ABDOMEN: Soft, nontender, nondistended, bowel sounds present, no masses or hepatosplenomegaly appreciated EXTREMITIES: No cyanosis or edema. Pulses 2+/4 in bilateral upper and lower extremities bandage present over the left upper extremity, dressing is dry and intact without drainage or bleeding. Right femoral catheter is in place. NEUROLOGIC: Alert and oriented 3 to person, place and time. Cranial nerves 2-12 grossly intact. No focal deficits appreciated PSYCHIATRIC: Mood and affect appropriate LABORATORY DATA: Please see below. IMAGING: None PROGNOSIS: Fair ACTIVITY: As tolerated. DIET: Renal diet DISCHARGE PLAN: Home, continue IV antibiotics during dialysis sessions. DISCHARGE INSTRUCTIONS: 1. Continue with dialysis on your regular schedule per nephrology. 2. You will receive IV antibiotics during her dialysis sessions 3. Follow-up with vascular surgery as scheduled. 4. If your symptoms return or your condition worsens, please call your PCP or return to the ED for further evaluation. ITEMS TO FOLLOWUP ON ON OUTPATIENT: 1. AV fistula revision 2. PermaCath in right femoral artery 3. Continue dialysis DISCHARGE CONDITION: Stable. TIME SPENT ON DISCHARGE: Greater than 35 minutes. Vital Signs/I&Os Vital Signs Date Time Temp Pulse Resp B/P (MAP) Pulse Ox O2 Delivery O2 Flow Rate FiO2 09/06/19 08:58 160/74 09/06/19 08:58 81 09/06/19 05:27 98.4 20 95 Room Air 09/03/19 15:00 2 I&O- Last 24 Hours up to 6 AM 09/06/19 06:00 Intake Total 700 ml Output Total 1500 ml Balance -800 ml Laboratory Data Labs 24H Laboratory Tests 2 09/06/19 07:11: Nucleated Red Blood Cells % (auto) 0.0, Anion Gap 7L, Glomerular Filtration Rate 7.8L, Calcium Level 8.8, Phosphorus Level 3.3#, Albumin 2.6L CBC/BMP Laboratory Tests 09/06/19 07:11 Microbiology Microbiology 09/03/19 Gram Stain - Final, Resulted 09/03/19 Surgical Biopsy Culture - Final, Resulted Proteus Mirabilis 09/03/19 Anaerobic Culture, Resulted Pending 09/03/19 Gram Stain - Final, Resulted 09/03/19 Abscess Culture - Final, Resulted Proteus Mirabilis 09/03/19 Anaerobic Culture, Resulted Pending 09/02/19 Blood Culture - Preliminary, Resulted No Growth after 72 hours. All specime... 09/02/19 Blood Culture - Preliminary, Resulted No Growth after 72 hours. All specime... Discharge Medications Scheduled Amlodipine Besylate (Amlodipine Besylate) 5 Mg Tablet, 5 MG PO DAILY, (Reported) Atorvastatin Calcium (Atorvastatin Calcium) 20 Mg Tablet, 20 MG PO QHS, (Reported) Calcitriol (Rocaltrol) 0.5 Mcg Capsule, 0.5 MCG PO 3XW, (Reported) MON/WED/FRI AT DIALYSIS Cefazolin Sodium (Cefazolin Sodium) 500 Mg Vial, 2 GM IV 3XW, (Reported) MON/WED/FRI AT DIALYSIS Cholecalciferol (Vitamin D3) (Vitamin D3) 1,000 Unit Tablet, 1,000 UNIT PO DAILY, (Reported) Cinacalcet HCl (Sensipar) 60 Mg Tablet, 60 MG PO 3XW, (Reported) MON/WED/FRI AT DIALYSIS Hydralazine HCl (Hydralazine HCl) 10 Mg Tablet, 10 MG PO BID, (Reported) Iron Sucrose Complex (Venofer) 100 Mg/5 Ml Vial, 100 MG IV 3XW, (Reported) MON/WED/FRI AT DIALYSIS Sevelamer Carbonate (Renvela) 800 Mg Tablet, 800 MG PO WM, (Reported) Sucroferric Oxyhydroxide (Velphoro) 500 Mg Tab.chew, 1,000 MG PO WM, (Reported) Vit B Comp No.3/Folic/C/Biotin (Nadege-Venkata Rx Tablet) 1 Each Tablet, 1 TAB PO DAILY, (Reported) Scheduled PRN Calcium Carbonate (Tums) 200 Mg Tab.chew, 500 MG PO for HEARTBURN/INDIGESTION, (Reported) Allergies Coded Allergies: latex (Verified Allergy, Intermediate, BLISTERS, 09/02/19) Contrast Media (Verified Allergy, Unknown, PT IS UNSURE OF REACTION, 09/02/19) iodine (Verified Allergy, Unknown, PT IS UNSURE OF REACTION, 09/02/19) vancomycin (Verified Allergy, Unknown, PT IS UNSURE OF REACTION, 09/02/19) GME ATTESTATION GME ATTESTATION My faculty preceptor for this patient encounter was physically present during the encounter and was fully available. All aspects of the patient interview, examination, medical decision making process, and medical care plan development were reviewed and approved by the faculty preceptor. The faculty preceptor is aware and concurs with the plan as stated in the body of this note and will attest to such by his/her cosignature. ATTENDING NOTE Patient was seen and examined by me this morning with the residents. Agree with the above assessment and plan MARIO ALBERTO CHRISTENSEN D.O. Sep 06, 2019 13:24 GEOFFREY ROSS MD Sep 07, 2019 08:49
--- NOTE | 2019-09-06 14:00 | CR ---
DATE OF CONSULTATION: 09/05/2019 REASON FOR CONSULTATION: I was asked to consult by Dr. Plasencia for evaluation of infected left upper extremity AV graft. HISTORY OF PRESENT ILLNESS: Mrs. Robbins is a pleasant 83-year-old [place] female with a history of end-stage renal disease on hemodialysis with previous history of infected graft. The patient had noticed about a month ago some purulent discharge from her left upper extremity AV graft and was admitted to the hospital for irrigation and debridement (I and D) and evaluation. The patient was started on IV antibiotics with cefazolin. Dr. Plasencia placed a right common femoral vein Perma-Cath through which she was getting hemodialysis and then to go to the operating room for excision of the AV graft, about 20 cm and the skin overlying it that was ulcerated,. and she placed in another Artegraft instead. The patient had some fluid overload and some shortness of breath on admission, but since hemodialysis she is doing much better. She has no fever or chills. No lightheadedness or diarrhea. No nausea or vomiting. She has done well without any new complaints since surgery except for some bleeding at the surgical site. She is anxious to go home. PAST MEDICAL HISTORY: Past medical history significant for end-stage renal disease on hemodialysis Thursday, Thursday and Thursday, hypertensive renal disease, chronic hepatitis B, dyslipidemia, recurrent hyperkalemia, secondary hyperparathyroidism, anemia of chronic disease, history of multiple graft infections, and history of methicillin-resistant Staphylococcus aureus (MRSA) in 2006 and methicillin-sensitive Staphylococcus aureus (MSSA) subsequently. PAST SURGICAL HISTORY: Bilateral cataract surgery, multiple dialysis access placements, fistulograms and angioplasties, recent removal of graft and culture positive for Proteus mirabilis, esophagogastroduodenoscopy (EGD) and colonoscopy. ALLERGIES: - CALCITRIOL - IODINE CONTRAST MEDIA - LATEX - VANCOMYCIN MEDICATIONS: Amlodipine 5 mg by mouth daily, atenolol 50 mg daily, atorvastatin 20 mg by mouth daily, vitamin D3 1000 units daily, Sensipar 30 mg daily, Benadryl as needed, hydralazine 25 mg twice a day, MiraLax 255 grams powder weekly, Renvela 1600 by mouth with meals, Nephro-Venkata 1 tablet three times a week, Tylenol as needed, Tums as needed, cefazolin 2 grams IV with hemodialysis. She was scheduled to get meropenem today, but this was not given yet. REVIEW OF SYSTEMS: She denies any fever, chills or weight loss. She denies any headache, nausea, vomiting or diarrhea. She had a mild cough and wheezing which have resolved. She has pain in the left arm. PHYSICAL EXAMINATION: Pleasant healthy looking elderly female in no acute distress getting hemodialysis when I examined her. Temperature is 98.3, pulse 80, respirations 18, blood pressure 134/62, O2 sat 92% on room air. Afebrile throughout this admission. Heart: Normal S1 and S2 with no murmurs, rubs or gallops appreciated. Lungs are clear. No wheezes or rhonchi. Abdomen: Soft, nontender. No visceromegaly. Extremities: No clubbing or cyanosis. Left arm AV graft. Surgical site swollen, slightly tender to touch, no purulent discharge. Right femoral vein Perma-Cath clean, nontender. Neurologic Exam: Normal. Alert, oriented times three. Moves all upper extremities upper and lower. LABORATORY DATA: White count 5.7, hemoglobin 8.5, hematocrit 26.1, platelets 188. Sodium 133, potassium 5.2, chloride 96, bicarb 24, BUN 66, creatinine 9.14, glucose 96, calcium nine, CRP 5.43, albumin 2.6. Wound cultures are positive for Proteus mirabilis. Anaerobic cultures are pending. Blood cultures two sets were negative. No x-rays have been done. IMPRESSION: This is an 83-year-old female with end-stage renal disease on hemodialysis, left arm AV fistula with multiple failed grafts and previous history of Staph aureus infection. The patient had irrigation and debridement (I and D) of the wound, resection of the graft and skin overlying it, and is now receiving IV antibiotics. Proteus mirabilis is sensitive to cefazolin and the patient is clinically doing well and anxious to go home. PLAN: The case has been discussed with Dr. Plasencia and Dr. Rincon who both agree that she will be treated with 2 weeks of IV cefazolin at a dose of 2 grams Thursday and Thursday and 3 grams over the weekend on Thursday for the next 2 weeks. She will follow up with Dr. Plasencia who will decide whether she needs more antibiotic or 2 weeks would be enough most likely. Monitor CBC and CRP next week. The patient from an infectious disease standpoint can be discharged home tomorrow. Thank you for the consultation.
== END 2019-09-06 11:45 | disposition home or self-care (01) | DRG 252 ==
LOC: M MSPAV 13:32 → M MS5PR 09-04 23:00
PROVIDERS: ADMIT Internal Medicine; ATTEND Internal Medicine
PROC: 0HBCXZZ Excision of Left Upper Arm Skin, External Approach (ICD-10-PCS; 2019-09-03)
PROC: 03WY0JZ Revision of Synthetic Substitute in Upper Artery, Open Approach (ICD-10-PCS; principal; 2019-09-03 07:30)
PROC: 5A1D70Z Performance of Urinary Filtration, Intermittent, Less than 6 Hours Per Day (ICD-10-PCS; 2019-09-05)
DX: T82.7XXA Infection and inflammatory reaction due to other cardiac and vascular devices, implants and grafts, initial encounter (principal); N18.6 End stage renal disease; N25.81 Secondary hyperparathyroidism of renal origin; I12.0 Hypertensive chronic kidney disease with stage 5 chronic kidney disease or end stage renal disease; B18.1 Chronic viral hepatitis B without delta-agent; D62 Acute posthemorrhagic anemia; Z99.2 Dependence on renal dialysis; E78.5 Hyperlipidemia, unspecified; D63.1 Anemia in chronic kidney disease; Z79.899 Other long term (current) drug therapy; Z91.040 Latex allergy status; Z91.041 Radiographic dye allergy status; Z88.8 Allergy status to other drugs, medicaments and biological substances; E87.5 Hyperkalemia; Y83.1 Surgical operation with implant of artificial internal device as the cause of abnormal reaction of the patient, or of later complication, without mention of misadventure at the time of the procedure

== ENCOUNTER → 2019-11-10 | Outpatient (CLI) | payer MEDICARE ==
[~2019-11-10] MED LIST changes: +ATOR1TAB21 PO; +HYDR10TAB PO; +ISOVUE-300 61% 50ML VIAL (Q9967) As Ordered ONE; +LIDOCAINE 1% MDV 20ML VIAL As Ordered ONE; +MIDAZOLAM INJ 2 MG/2 ML VIAL (J2250) As Ordered ONE; +RENATAB6 PO; +ROCA0.5C PO; +SENS60TA PO; +VELP5CHW PO; +VENO20IN7 IV; +VITA100066 PO; +[UNRECOGNIZED DRUG - CODE] IV; +fentaNYL 100 MCG/2 ML INJECTION (J3010) As Ordered ONE
--- NOTE | 2019-11-10 15:23 | ROOPDOC ---
[facility] Report Of Operation Report of Operation DATE OF PROCEDURE: 11/10/19 PREPROCEDURE DIAGNOSES: End-stage renal disease with pulsatile left upper extremity brachial axillary AV graft and poor flows POSTPROCEDURE DIAGNOSES: Same PROCEDURE: 1. Ultrasound-guided access left upper extremity AV graft 2. Left upper extremity fistulogram and central venogram 3. Angioplasty AV graft, axillary vein, subclavian vein, and innominate vein with 8 x 200 [place] balloon 4. Completion venogram SURGEON: Radha Plasencia MD ANESTHESIA: Local anesthesia 2 mL lidocaine. Moderate intravenous conscious sedation was administered by Dr. Plasencia. The patient was independently monitored by registered nurse assigned to the Department of radiology using automated blood pressure, EKG, and pulse oximetry. A detailed sedation record is probably stored in the hospital information system. The following is a brief sedation record: Start time 14:35, stop time 15:03, Versed 0.5 mg IV, fentanyl 25 g IV. 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 Risks benefits and alternatives to a fistulogram and central venogram with potential intervention were explained to the patient and she is agreeable to proceed. Informed consent was obtained. INTERPRETATION: 1. There is widely patent flow into the AV graft and through the graft into the upper arm. The new Artegraft interposition is widely patent. The anastomosis with the previous graft is widely patent. There is a 30% stenosis in the original graft in the most proximal arm, 70% stenosis at the original graft axillary vein anastomosis, and a 90% stenosis in the subclavian vein, and a 80% stenosis in the innominate vein. There are extensive collaterals from the axil anabell vein around the chest helping with her outflow. 2. After angioplasty with an 8 x 200 [place] balloon, all areas of stenosis are widely patent with less than 10% residual stenosis. The patient had an excellent thrill in her fistula after angioplasty and in-line flow restored to the heart. She also had improve flow through her collaterals as well. REPORT OF OPERATION: Patient was brought to the angiographic suite in stable condition. Her left upper extremity was prepped and draped in a sterile fashion. A timeout was performed. Sedation wasn't ministered without complication. Local anesthesia was administered to the skin and subcutaneous tissue over the AV graft near the AV anastomosis. A microneedle was used to access the graft and a wire was passed through this access under fluoroscopic guidance. A micro-sheath was placed. A Glidewire was advanced through this and the sheath was exchanged for 6 Chadian sheath. Sheath was flushed with saline. A fistulogram was performed. Please see interpretation above. We then were able to carefully navigate the wire through the very tight stenoses along the path back to the central system. This took a bit of time but we were eventually able to cross all the way through to the right atrium. We then selected and 8 x 200 [place] balloon and performed multiple three-minute inflations across all areas of stenosis. Following extensive angioplasty, we had in-line flow from the graft back to the heart and an excellent thrill and the fistula. Her collateral circulation also filled better after angioplasty. A Prolene suture was placed in a [id number] pattern around the sheath and the sheath was removed. The suture was secured and pressure was held for 5 minutes for good hemostasis. Steri-Strips were placed across the sutures told them in place and sterile dressings were applied. The suture will be removed before the patient leaves recovery. She tolerated the procedure and the sedation well. ESTIMATED BLOOD LOSS: Approximately 2 mL. COMPLICATIONS: None. PLAN: Our plan is for the patient to use her AV graft at dialysis tomorrow. I discussed this with Dr. Rincon and he is agreeable. We would like to get her femoral thigh PermCath out as soon as possible. She is high risk for infection with this in place, and is high risk for PermCath thrombosis and femoral vein thrombosis as well. Her graft has been marked on the skin to help with access at dialysis. We will be happy to remove her PermCath as soon as this is acceptable from Dr. Rincon's standpoint. RADHA PLASENCIA MD Nov 10, 2019 15:23
[2019-11-10 15:38] VITALS: BP 189/90
== END ==
LOC: M IRPRO 12:48
PROVIDERS: ATTEND Surgery Vascular Surgery
DX: T82.590A Other mechanical complication of surgically created arteriovenous fistula, initial encounter (principal); N18.6 End stage renal disease; X58.XXXA Exposure to other specified factors, initial encounter; Y93.9 Activity, unspecified; Y92.9 Unspecified place or not applicable; Y99.9 Unspecified external cause status
CPT/HCPCS: 36902; 36907; 99152; 99153; C1725; C1769; C1894; J1644; J2250; J3010; Q9967

== ENCOUNTER → 2019-11-15 | Outpatient (CLI) | payer MEDICARE ==
[~2019-11-15] MED LIST changes: -ISOVUE-300 61% 50ML VIAL (Q9967) As Ordered ONE; +LIDOCAINE W/EPINEPHRINE 1% 20ML VIAL As Ordered ONE; -MIDAZOLAM INJ 2 MG/2 ML VIAL (J2250) As Ordered ONE; -fentaNYL 100 MCG/2 ML INJECTION (J3010) As Ordered ONE
--- NOTE | 2019-11-15 09:41 | ROOPDOC ---
[facility] Report Of Operation Report of Operation DATE OF PROCEDURE: 11/15/19 PREPROCEDURE DIAGNOSES: End-stage renal disease no longer requiring PermCath for dialysis POSTPROCEDURE DIAGNOSES: Same PROCEDURE: Removal right femoral tunneled PermCath SURGEON: Radha Plasencia MD ANESTHESIA: Local anesthesia INDICATION FOR PROCEDURE: Very pleasant 83 year old patient who has been successfully dialyzing with her left AV graft, and no longer needs her right femoral permcath. Risks, benefits and alternatives to permcath removal were explained and the patient is agreeable and informed consent was obtained. REPORT OF OPERATION: Time out was performed. Her right thigh including the PermCath for prepped and draped in a sterile fashion. Local anesthesia was ministered around the exit site of the PermCath. The sutures were ligated and removed. Blunt dissection was used to loosen the cough from the subcutaneous tissue. Pressure was held over the femoral vein and the catheter was removed. The entire catheter was removed including the tips and the cough, no portion was left behind. Pressure was held for 10 minutes for good hemostasis and sterile dressings were applied patient was then monitored postprocedure to ensure no bleeding occurred. She tolerated the procedure well without compensation. No sedation was used for the procedure. ESTIMATED BLOOD LOSS: Approximately 1 mL. COMPLICATIONS: None. PLAN: Continue to use the left brachial axillary AV graft for dialysis. Follow- up in 1-2 months to check graft flow, or sooner if issues arise. RADHA PLASENCIA MD Nov 15, 2019 09:41
[2019-11-15 10:30] VITALS: BP 175/77
== END ==
LOC: M IRPRO 07:35
PROVIDERS: ATTEND Surgery Vascular Surgery
DX: N18.6 End stage renal disease (principal); Z88.1 Allergy status to other antibiotic agents; Z88.8 Allergy status to other drugs, medicaments and biological substances; Z91.040 Latex allergy status; Z91.041 Radiographic dye allergy status; Z91.048 Other nonmedicinal substance allergy status; Z99.2 Dependence on renal dialysis

== ENCOUNTER → 2020-08-28 | Outpatient (CLI) | payer MEDICARE ==
[~2020-08-28] MED LIST changes: +AMLO1TAB24 PO; -AMLO5TAB6 PO; +HYDR-3911; +HYDROCORTISONE 100 MG/2 ML VIAL (J1720 PER 1) As Ordered ONE; +HYDROCORTISONE 100 MG/2 ML VIAL (J1720 PER 1) IV ONE; +IRBE300T7; +ISOVUE-300 61% 50ML VIAL As Ordered ONE; -LIDOCAINE W/EPINEPHRINE 1% 20ML VIAL As Ordered ONE; +MIDAZOLAM INJ 2MG/2ML VIAL (J2250 PER 1MG) As Ordered ONE; +Nephro-Vite; +diphenhydrAMINE 50MG/ML VIAL (J1200) As Ordered ONE; +diphenhydrAMINE 50MG/ML VIAL (J1200) IV ONE; +fentaNYL 100 MCG/2 ML INJECTION (J3010) As Ordered ONE; +hydrALAZINE 20MG/ML 1ML VIAL (J0360 PER 20MG) As Ordered ONE
--- NOTE | 2020-08-28 15:13 | ROOPDOC ---
[facility] Report Of Operation Report of Operation DATE OF PROCEDURE: 08/28/20 PREPROCEDURE DIAGNOSES: End-stage renal disease with increased pulsatility left AV graft POSTPROCEDURE DIAGNOSES: Same PROCEDURE: 1. Ultrasound-guided access left brachial axillary graft 2. Left upper extremity fistulogram and central venogram 3. Angioplasty proximal graft, outflow vein and axillary vein, axillary vein and subclavian vein, back to the SVC with 8 x 200 Lesage balloon 4. Completion venogram SURGEON: Radha Plasencia MD ANESTHESIA: Local anesthesia 2 mL lidocaine. Moderate intravenous conscious sedation was supervised by Dr. Plasencia. The patient was independently monitored by registered nurse under the department of radiology using automated blood pressure, EKG, and pulse oximetry. The detailed sedation record is permanently stored in the hospital information system. The following is a brief sedation record: Start time 14:30, stop time 14:45, hydrocortisone 100 mg IV, Benadryl 50 mg IV, fentanyl 50 g IV, Versed 1 mg IV, hydralazine 30 mg IV. CONTRAST: 14 mL Isovue-300 INDICATION FOR PROCEDURE: This is a very pleasant 84-year-old patient with end- stage renal disease currently dialyzing with left upper extremity brachial axillary graft. Wrist benefits and alternatives to a fistulogram potential intervention were explained to the patient she is agreeable to proceed. Informed consent was obtained. The patient has a contrast allergy and thus she pretreat with steroids and Benadryl and we will use as little IV contrast as possible. She is known to be very hypertensive, and we will treat this during the procedu re as indicated. INTERPRETATION: 1. The AV anastomosis is widely patent on ultrasound and images were saved. 2. The AV graft is widely patent and there is a 90% stenosis where this anastomosis with the axillary vein, and then intermittent 20-40% stenoses throughout the outflow in the subclavian vein back to the IVC. 3. After angioplasty from the IVC to the upper arm with several three-minute inflations as an 8 x 200 Lesage balloon, there is widely patent flow back to the central system, no extravasation, and an excellent thrill in the graft. The pulsatility has resolved. REPORT OF OPERATION: The patient was brought to the angiographic suite in stable condition. Her left upper extremity was prepped and draped in a sterile fashion. A timeout was performed. Local anesthesia was a dry kiln feeder to skin and subcutaneous tissue over the AV graft near the AV anastomosis. Ultrasound was used to examine the AV anastomosis and it was noted to be widely patent, and then we used the ultrasound to gain access to the graft. Wire was passed through this access and the needle was removed and a 4 Pashto sheath was placed and flushed with saline. Steroids, Benadryl, sedation, and antihypertensives were slowly administered without complication. A Glidewire was advanced through this access into the central system. With some effort we were able to cross through to the SVC. We then performed a quick fistulogram with as minimal contrast as possible. We then selected and 8 x 200 Lesage balloon and advance this all the way into the IVC and back towards the axillary vein and distal AV graft. Three- minute inflations was performed. We then retracted the balloon into the upper arm and another three-minute inflations was performed. Both angioplasties encompassed the axillary anastomosis to improve her outflow. Following this, there was widely patent flow back to the central system, rapid, no significant residual stenoses, no extravasation. There was an excellent thrill and the fistula. This concluded our procedure. Local anesthesia was a dry kiln feeder on the sheath and a [id number] Prolene suture was placed and secured his the sheath was removed. Sterile dressings were applied and pressure was held for 2 minutes for good hemostasis. The patient was then taken to recovery in stable condition. She tolerated the procedure and the sedation well. Her blood pressure was controlled by the end of the case. She had no reaction to the IV contrast. ESTIMATED BLOOD LOSS: Approximately 2 mL. COMPLICATIONS: None PLAN: It is okay to use the AV graft for dialysis. The patient can resume her home diet and medications. We appreciate the opportunity to produce patent care of this patient. RADHA PLASENCIA MD Aug 28, 2020 15:13
[2020-08-28 15:30] VITALS: BP 152/70
== END ==
LOC: M IRPRO 11:49
PROVIDERS: ATTEND Surgery Vascular Surgery
DX: T82.590A Other mechanical complication of surgically created arteriovenous fistula, initial encounter (principal); N18.6 End stage renal disease; I12.0 Hypertensive chronic kidney disease with stage 5 chronic kidney disease or end stage renal disease; X58.XXXA Exposure to other specified factors, initial encounter; Z79.899 Other long term (current) drug therapy; Z86.14 Personal history of Methicillin resistant Staphylococcus aureus infection; Z88.1 Allergy status to other antibiotic agents; Z88.8 Allergy status to other drugs, medicaments and biological substances; Z91.040 Latex allergy status; Z91.041 Radiographic dye allergy status; Z99.2 Dependence on renal dialysis
CPT/HCPCS: 36902; 36907; 99152; C1725; C1769; C1894; J0360; J1200; J1644; J1720; J2250; J3010; Q9967

== ENCOUNTER → 2021-06-13 | Outpatient (CLI) | payer MEDICARE ==
[~2021-06-13] MED LIST changes: -HYDROCORTISONE 100 MG/2 ML VIAL (J1720 PER 1) As Ordered ONE; -HYDROCORTISONE 100 MG/2 ML VIAL (J1720 PER 1) IV ONE; -ISOVUE-300 61% 50ML VIAL As Ordered ONE; -LIDOCAINE 1% MDV 20ML VIAL As Ordered ONE; -MIDAZOLAM INJ 2MG/2ML VIAL (J2250 PER 1MG) As Ordered ONE; -PEG1POW PO; +POLY17PO18 PO; -diphenhydrAMINE 50MG/ML VIAL (J1200) As Ordered ONE; -diphenhydrAMINE 50MG/ML VIAL (J1200) IV ONE; -fentaNYL 100 MCG/2 ML INJECTION (J3010) As Ordered ONE; -hydrALAZINE 20MG/ML 1ML VIAL (J0360 PER 20MG) As Ordered ONE
--- NOTE | 2021-06-13 16:52 | REP ---
INDICATION: VENOUS STENOSIS OF LT ARM. COMPARISON: None. TECHNIQUE: Real-time sonographic evaluation and duplex Doppler interrogation of the left AV fistula is performed. FINDINGS: There is reportedly placement of a new AV fistula. Peak systolic velocity in the brachial artery approximately 2 cm proximal to the anastomosis with the new graft is 59.7 centimeters/second, flow volume 400 cc/minute with triphasic waveform. Biphasic waveforms are seen in the more distal radial and ulnar arteries, peak systolic velocity in the ulnar artery 72.9 centimeters/second and in the radial artery 68.2 centimeters/second. At the anastomosis between the brachial artery and the graft the peak systolic velocity is 644 centimeter/second. In the more distal graft peak systolic velocity is 30.7 centimeters/second with flow volume 258 cc/minute. Flow is seen in the old graft with peak systolic velocity of 24.7 centimeter/second and flow volume 132 cc/minute. In the midportion of the new graft there is a partially thrombosed pseudoaneurysm. 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 <Electronically signed by Abhishek Altamirano > 06/13/21 [id number]
== END ==
LOC: M RAD 14:05
PROVIDERS: ATTEND Surgery Vascular Surgery
DX: I65.02 Occlusion and stenosis of left vertebral artery (principal)

== ENCOUNTER → 2021-07-02 | Outpatient (CLI) | payer MEDICARE ==
[~2021-07-02] MED LIST changes: +ATEN100T PO; +ISOVUE-300 61% 50ML VIAL As Ordered ONE; +LIDOCAINE 1% MDV 20ML VIAL As Ordered ONE; +MIDAZOLAM INJ 2MG/2ML VIAL (J2250 PER 1MG) As Ordered ONE; +atenoloL 50 MG TAB PO ONE; +ceFAZolin 1GM VIAL (J0690 PER 500MG) As Ordered ONE; +ceFAZolin SOD 1 GM in D5W MINI-BAG PLUS 50 ML IV ONE; +fentaNYL 100 MCG/2 ML INJECTION (J3010) As Ordered ONE; +hydrALAZINE 20MG/ML 1ML VIAL (J0360 PER 20MG) As Ordered ONE; +hydrALAZINE 20MG/ML 1ML VIAL (J0360 PER 20MG) IV STA
[2021-07-02 07:19] LABS: HEMATOCRIT 35.1 % (36.0-47.0); HEMOGLOBIN 11.3 g/dl (12.0-15.5); MEAN CORPUSCULAR HEMOGLOBIN 32.5 pg (27.0-33.0); MEAN CORPUSCULAR HGB CONC 32.2 g/dl (32.0-36.5); MEAN CORPUSCULAR VOLUME 100.9 fl (80.0-96.0); PLATELET COUNT, AUTOMATED 199 10^3/uL (150-450); RED BLOOD COUNT 3.48 10^6/uL (4.00-5.40); WHITE BLOOD COUNT 3.2 10^3/uL (4.0-10.0)
[2021-07-02 07:32] LABS: INR 1.05; PROTHROMBIN TIME 14.1 SECONDS (12.7-14.5)
[2021-07-02 07:33] LABS: PARTIAL THROMBOPLASTIN TIME 28.8 SECONDS (25.9-37.0)
[2021-07-02 07:41] LABS: CALCIUM LEVEL 10.6 MG/DL (8.8-10.2); CREATININE FOR GFR 7.26 MG/DL (0.55-1.30); GLOMERULAR FILTRATION RATE 5.7 (>32); POTASSIUM SERUM 5.5 MEQ/L (3.5-5.1)
[2021-07-02 07:43] VITALS: BP 220/88
--- NOTE | 2021-07-02 09:45 | IRPON ---
IR Postoperative Note Date Of Procedure: Jul 02, 2021 Time Of Procedure: 08:30 IR Postoperative Note PREOPERATIVE DIAGNOSIS: End-stage renal disease, on hemodialysis through a left brachiocephalic AV fistula, recurrent venous outflow stenosis, with increased pulsatility of the AV fistula and pseudoaneurysm of the AV fistula POSTOPERATIVE DIAGNOSIS: End-stage renal disease, on hemodialysis through a left brachiocephalic AV fistula, recurrent venous outflow stenosis, with increased pulsatility of the AV fistula and pseudoaneurysm of the AV fistula FINDINGS: 1. Patent left arm AV fistula, with severe 99% focal recurrent stenosis of the left arm cephalic vein, at its junction with the axillary vein. There is also a 50% focal stenosis of the left subclavian vein. Successful balloon angioplasty of both lesions, with the 8 x 200 mm Stirling balloon PROCEDURE: 1. Left arm fistulogram and central dizujzaa-wrhjuhfvbl-meuzea access of the fistula 2. Balloon angioplasty of the left cephalic vein and subclavian vein stenoses with 8 x 200 mm of Stirling balloon SURGEON: Chen vOiedo MD ENTER[employer]ISE SERVICES MANAGER: None ANESTHESIA: Intravenous sedation: Versed-0.5 mg and fentanyl-25 mcg Contrast: 18 mL Isovue 300 SPECIMENS: None ESTIMATED BLOOD LOSS: Minimal COMPLICATIONS: None POSTOPERATIVE CONDITION: Stable Chen Oviedo MD Jul 02, 2021 09:45
[2021-07-02 11:25] VITALS: BP 157/65
--- NOTE | 2021-07-02 17:12 | ROOPDOC ---
[facility] Report Of Operation Report of Operation DATE OF PROCEDURE: 07/02/21 PREPROCEDURE DIAGNOSES: End-stage renal disease, on hemodialysis through a left brachio axillary AV graft, recurrent venous outflow stenosis, with increased pulsatility of the AV graft and pseudoaneurysm of the AV graft POSTOPERATIVE DIAGNOSIS: End-stage renal disease, on hemodialysis through a left brachio axillary AV graft, recurrent venous outflow stenosis, with increased pulsatility of the AV graft and pseudoaneurysm of the AV graft PROCEDURE: 1. Left arm AV graftogram and central ufhmvufs-flrdpxhrxu-fvktsr access of the graft 2. Balloon angioplasty of the left arm AV graft venous anastomosis and subclavian vein stenoses with 8 x 200 mm of Custar balloon SURGEON: Chen Oviedo MD RECOVERY OPERATOR HELPER: None ANESTHESIA: Intravenous sedation and local Contrast: 18 mL Isovue 300 ESTIMATED BLOOD LOSS: Approximately 2 mL. COMPLICATIONS: None to FINDINGS: 1. Patent left arm AV graft with severe 99% focal recurrent stenosis of the graft, at its junction with the axillary vein. There is also a 50% focal stenosis of the left subclavian vein. Successful balloon angioplasty of both lesions, with the 8 x 200 mm Custar balloon PROCEDURE NOTE: Indication for the procedure the patient is a 85-year-old lady, who is on hemodialysis through left arm brachial axillary AV graft. She has no problems during dialysis treatments. However she noticed 3 cm lump, in the mid arm level, a month ago. This lump was noted to be pseudoaneurysm, with partial thrombosis, on duplex imaging. She was also noted to have significant increase in pulsatility of the AV graft, suggestive of recurrent venous outflow stenosis. The patient is known to have severe stenosis of the venous anastomosis, no previous imaging performed on 08/28/2020, at which time she had intervention with an 8 mm Custar balloon, by Dr. Plasencia. 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 The above mentioned procedure is being performed, for graft salvage and also to prevent progression of the pseudoaneurysm Informed consent was obtained from the patient, for the procedure, after explaining the risk benefits and complications of the procedure, which include but are not limited to bleeding, infection, cardiorespiratory complications, ischemic complications to the arm and the hand, failure to treat, injury to the arterial and venous structures requiring additional procedures, recurrent stenosis etc. The patient is known to be allergic to IV dye. However she has tolerated contrast imaging in the past, with prednisone steroid prep, and hence the current procedure is also being performed, after administering the steroid protocol DESCRIPTION OF PROCEDURE: The patient was identified correctly, and placed supine on the operating room table. The left arm was cleaned and draped in a sterile fashion. After administering local anesthesia, the left arm AV graft was accessed under ultrasound, using a micropuncture kit. The 5 Bermudian micro sheath was then exchanged to a 6 B[place]udian sheath over a stiff Glidewire. Graftogram was performed through the sheath. Findings as mentioned above. It was decided to treat the stenosis. Initially a Glidewire and glide catheter were used to, to cross the near occlusive stenosis. Later 0.014 inch Fathom wire, and an angled Navicross catheter were used to cross stenosis. Balloon angioplasty of the stenoses was performed, using 8 x 200 mm Custar balloon. Completion imaging revealed good results, with complete resolution of the stenoses and a good outflow from the graft. The arterial anastomosis was defined, and was noted to be patent. The sheath was removed, and the sheath access site was controlled with 2-0 Prolene pursestring suture. The patient tolerated the procedure well, and was transferred to the recovery room in a hemodynamically stable condition. Plan: May access the AV graft for dialysis treatments Will monitor the pseudoaneurysm for now, for regression, as the venous stenosis is treated. If it continues to enlarge, consideration will be given, for repair of the pseudoaneurysm in the future. Chen Oviedo MD Jul 02, 2021 17:12
== END ==
LOC: M IRPRO 06:23
PROVIDERS: ATTEND Surgery Vascular Surgery
DX: T82.590A Other mechanical complication of surgically created arteriovenous fistula, initial encounter (principal); I72.8 Aneurysm of other specified arteries; N18.6 End stage renal disease; X58.XXXA Exposure to other specified factors, initial encounter; Z88.1 Allergy status to other antibiotic agents; Z88.8 Allergy status to other drugs, medicaments and biological substances; Z91.040 Latex allergy status; Z91.041 Radiographic dye allergy status; Z91.048 Other nonmedicinal substance allergy status; Z99.2 Dependence on renal dialysis
CPT/HCPCS: 36902; 36907; 80048; 85027; 85610; 85730; 86850; 86900; 86901; C1725; C1769; C1887; C1894; J0360; J0690; J1644; J2250; J3010; Q9967

== ENCOUNTER → 2021-10-03 | Outpatient (REF) | payer MEDICARE ==
[~2021-10-03] MED LIST changes: -ISOVUE-300 61% 50ML VIAL As Ordered ONE; -LIDOCAINE 1% MDV 20ML VIAL As Ordered ONE; -MIDAZOLAM INJ 2MG/2ML VIAL (J2250 PER 1MG) As Ordered ONE; -atenoloL 50 MG TAB PO ONE; -ceFAZolin 1GM VIAL (J0690 PER 500MG) As Ordered ONE; -ceFAZolin SOD 1 GM in D5W MINI-BAG PLUS 50 ML IV ONE; -fentaNYL 100 MCG/2 ML INJECTION (J3010) As Ordered ONE; -hydrALAZINE 20MG/ML 1ML VIAL (J0360 PER 20MG) As Ordered ONE; -hydrALAZINE 20MG/ML 1ML VIAL (J0360 PER 20MG) IV STA
== END ==
LOC: M LAB REF 14:21
PROVIDERS: ATTEND Dermatology
DX: D23.62 Other benign neoplasm of skin of left upper limb, including shoulder (principal)

== ENCOUNTER 2021-11-30 18:14 | Emergency (ER) | payer MEDICARE ==
[~2021-11-30] VITALS: Ht 152.4 cm; Wt 50.4 kg
[2021-11-30 19:44] VITALS: BP 192/90
[2021-11-30] MEDS ORDERED: IRBE300T7 PO (20:24)
[2021-11-30] MEDS ORDERED: ECOT81TA5 PO (20:24)
[2021-11-30] MEDS ORDERED: NEPH1TAB11 PO (20:24)
[2021-11-30] MEDS ORDERED: [UNRECOGNIZED DRUG - OTHER] TOP (20:24)
[2021-11-30] MEDS ORDERED: HYDR-3910 PO (20:24)
== END 2021-11-30 21:19 | disposition home or self-care (01) ==
LOC: M ED 18:14
DX: S80.12XA Contusion of left lower leg, initial encounter (principal); I10 Essential (primary) hypertension; N18.6 End stage renal disease; F41.8 Other specified anxiety disorders; W22.8XXA Striking against or struck by other objects, initial encounter; Y92.009 Unspecified place in unspecified non-institutional (private) residence as the place of occurrence of the external cause; Y93.9 Activity, unspecified; Y99.9 Unspecified external cause status; Z79.899 Other long term (current) drug therapy; Z91.040 Latex allergy status; Z91.048 Other nonmedicinal substance allergy status

== ENCOUNTER → 2022-01-09 | Outpatient (CLI) | payer MEDICARE ==
[~2022-01-09] MED LIST changes: +ECOT81TA5 PO; +IRBE300T7 PO; +[UNRECOGNIZED DRUG - OTHER] TOP
== END ==
LOC: M RAD 15:00
PROVIDERS: ATTEND Nurse Practitioner Family
DX: R52 Pain, unspecified (principal)

== ENCOUNTER 2022-05-26 05:44 | Emergency (ER) | payer MEDICARE ==
[~2022-05-26] VITALS: Ht 152.4 cm; Wt 44.1 kg
[2022-05-26] MEDS ORDERED: BOOSTRIX/ADACEL VACCINE (DIPHTH/PERTUSS/ACELL/TETANUS) 0.5ML SYR IM.IMMUN ONE (07:30)
[2022-05-26] MEDS ORDERED: IRBESARTAN 150MG TAB PO STA (08:12)
[2022-05-26] MEDS ORDERED: **hydrALAZINE** 50 MG TAB PO ONE (08:15)
[2022-05-26 10:15] VITALS: BP 230/118
[2022-05-26] MEDS ORDERED: AMLO1TAB24 PO (10:43)
== END 2022-05-26 11:11 | disposition home or self-care (01) ==
LOC: M ED 05:44 → EDBD 05:44 → M ED 11:11
DX: S00.03XA Contusion of scalp, initial encounter (principal); S61.411A Laceration without foreign body of right hand, initial encounter; W19.XXXA Unspecified fall, initial encounter; I10 Essential (primary) hypertension; B16.9 Acute hepatitis B without delta-agent and without hepatic coma; N18.9 Chronic kidney disease, unspecified; Z91.041 Radiographic dye allergy status; Z91.040 Latex allergy status; Z79.82 Long term (current) use of aspirin; Z79.899 Other long term (current) drug therapy; Y92.9 Unspecified place or not applicable; Y93.9 Activity, unspecified; Y99.9 Unspecified external cause status

== ENCOUNTER 2022-06-16 15:36 | Inpatient (IN) | payer MEDICARE ==
[~2022-06-16] VITALS: Ht 152.4 cm; Wt 41.8 kg
[2022-06-16] MEDS ORDERED: fentaNYL 100 MCG/2 ML INJECTION As Ordered ONE (15:49)
[2022-06-16] MEDS ORDERED: ISOVUE-300 61% 50ML VIAL As Ordered ONE (15:49)
[2022-06-16] MEDS ORDERED: MIDAZOLAM INJ 2MG/2ML VIAL (J2250 PER 1MG) As Ordered ONE (15:49)
[2022-06-16] MEDS ORDERED: LIDOCAINE 1% MDV 20ML VIAL As Ordered ONE (15:49)
[2022-06-16] MEDS ORDERED: ceFAZolin SOD 2 GM in IV 1 EA IV ONE (15:55)
[2022-06-16] MEDS ORDERED: FAMOTIDINE 20MG/2ML VIAL IV ONE (16:00)
[2022-06-16] MEDS ORDERED: diphenhydrAMINE 50MG/ML VIAL (J1200) IV ONE (16:00)
[2022-06-16] MEDS ORDERED: HYDROCORTISONE 100 MG/2 ML VIAL (J1720 PER 1) IV ONE (16:00)
[2022-06-16] MEDS ORDERED: ceFAZolin 2 GM/D5W 50 ML IV BAG (J0690 PER 500MG) As Ordered ONE (16:04)
[2022-06-16] MEDS ORDERED: HYDROCORTISONE 100 MG/2 ML VIAL (J1720 PER 1) As Ordered ONE (16:04)
[2022-06-16] MEDS ORDERED: diphenhydrAMINE 50MG/ML VIAL (J1200) As Ordered ONE (16:04)
[2022-06-16 16:13] LABS: HEMATOCRIT 32.7 % (36.0-47.0); HEMOGLOBIN 10.8 g/dl (12.0-15.5); MEAN CORPUSCULAR HEMOGLOBIN 34.7 pg (27.0-33.0); MEAN CORPUSCULAR VOLUME 105.1 fl (80.0-96.0); PLATELET COUNT, AUTOMATED 202 10^3/uL (150-450); RED BLOOD COUNT 3.11 10^6/uL (4.00-5.40); WHITE BLOOD COUNT 8.4 10^3/uL (4.0-10.0)
[2022-06-16 16:24] LABS: INR 0.92; PROTHROMBIN TIME 12.8 SECONDS (12.7-14.5)
[2022-06-16 16:26] LABS: PARTIAL THROMBOPLASTIN TIME 32.2 SECONDS (25.9-37.0)
[2022-06-16] MEDS ORDERED: hydrALAZINE 20MG/ML 1ML VIAL (J0360 PER 20MG) As Ordered ONE (16:49)
[2022-06-16 16:57] LABS: CALCIUM LEVEL 9.3 MG/DL (8.8-10.2); CREATININE FOR GFR 7.72 MG/DL (0.55-1.30); GLOMERULAR FILTRATION RATE 5.3 (>32); POTASSIUM SERUM 6.3 MEQ/L (3.5-5.1)
[2022-06-16] MEDS ORDERED: ALTEPLASE 2MG/2ML VIAL As Ordered ONE ×2 (17:02→17:13)
[2022-06-16] MEDS ORDERED: INSULIN LISPRO (NovoLOG) PER UNIT As Ordered ONE (17:02)
[2022-06-16] MEDS ORDERED: SODIUM BICARBONATE 8.4% INJ 50 ML SYRINGE IV ONE (17:10)
[2022-06-16] MEDS ORDERED: CALCIUM GLUCONATE 1,000MG/10ML VIAL (100MG/ML) (J0610) IV ONE ×2 (17:10→17:15)
[2022-06-16] MEDS ORDERED: DEXTROSE 50% 50 ML SYRINGE As Ordered ONE (17:10)
[2022-06-16] MEDS ORDERED: LABETALOL 100MG/20ML VIAL As Ordered ONE (17:20)
[2022-06-16] MEDS ORDERED: INSULIN LISPRO (NovoLOG) PER UNIT SC ONE (18:00)
[2022-06-16] MEDS ORDERED: DEXTROSE 50% 50 ML SYRINGE IV ONE (18:05)
[2022-06-16] MEDS ORDERED: LIDOCAINE 1% SDV 5ML VIAL SC PRN (18:50)
[2022-06-16] MEDS ORDERED: SODIUM CHLORIDE 0.9% 1000ML IV PRN (18:50)
[2022-06-16] MEDS ORDERED: ACETAMINOPHEN TAB 650MG DOSE (2X325MG) PO PRN (18:55)
[2022-06-16 19:00] VITALS: BP 158/67
[2022-06-16 23:00] VITALS: BP 158/70
[2022-06-17] VITALS: BP 135/63
[2022-06-17 04:00] VITALS: BP 180/64
[2022-06-17] MEDS ORDERED: HYDR100T26 PO (06:33)
[2022-06-17] MEDS ORDERED: LIDO1CRE42 TOP (06:33)
[2022-06-17] MEDS ORDERED: VITA100093 PO (06:33)
[2022-06-17] MEDS ORDERED: RENV2TAB PO (06:33)
[2022-06-17] MEDS ORDERED: VELT1POW PO (06:33)
[2022-06-17] MEDS ORDERED: AMLO1TAB24 PO (06:33)
[2022-06-17] MEDS ORDERED: IRBE300T7 PO (06:33)
[2022-06-17] MEDS ORDERED: CLON0.1D3 TD (06:33)
[2022-06-17] MEDS ORDERED: RENATAB6 PO (06:33)
[2022-06-17] MEDS ORDERED: HOME MED LIST COMPLETE! XX SCH (06:35)
[2022-06-17 07:01] LABS: HEMATOCRIT 27.8 % (36.0-47.0); HEMOGLOBIN 9.3 g/dl (12.0-15.5); MEAN CORPUSCULAR HGB CONC 33.5 g/dl (32.0-36.5); MEAN CORPUSCULAR VOLUME 104.5 fl (80.0-96.0); PLATELET COUNT, AUTOMATED 158 10^3/uL (150-450); RED BLOOD COUNT 2.66 10^6/uL (4.00-5.40); WHITE BLOOD COUNT 8.8 10^3/uL (4.0-10.0)
[2022-06-17 07:39] LABS: CALCIUM LEVEL 9.2 MG/DL (8.8-10.2); CREATININE FOR GFR 4.45 MG/DL (0.55-1.30); MAGNESIUM LEVEL 2.4 MG/DL (1.8-2.4); POTASSIUM SERUM 5.1 MEQ/L (3.5-5.1)
[2022-06-17 08:00] VITALS: BP 186/84
[2022-06-17] MEDS ORDERED: cloNIDine HCL 0.1 MG/24 HR PATCH TD SCH (09:00)
[2022-06-17] MEDS ORDERED: IRBESARTAN 150MG TAB PO SCH (09:00)
[2022-06-17] MEDS ORDERED: **hydrALAZINE** 50 MG TAB PO SCH (09:00)
[2022-06-17] MEDS ORDERED: amLODIPine 5 MG TAB PO SCH (09:00)
[2022-06-17] MEDS ORDERED: hydrALAZINE 20MG/ML 1ML VIAL (J0360 PER 20MG) IV ONE (09:50)
[2022-06-17 11:28] VITALS: BP 198/68
[2022-06-17 11:57] VITALS: BP 168/52
== END 2022-06-17 16:43 | disposition home or self-care (01) | DRG 252 ==
LOC: M IRPRO 15:36 → M PCU 18:16
PROVIDERS: ADMIT Internal Medicine Nephrology; ATTEND Internal Medicine
PROC: 057 Upper Veins, Dilation (ICD-10-PCS; 2022-06-16)
PROC: 057 Upper Veins, Dilation (ICD-10-PCS; 2022-06-16)
PROC: 05763Z1 Dilation of Left Subclavian Vein using Drug-Coated Balloon, Percutaneous Approach (ICD-10-PCS; 2022-06-16)
PROC: 03CY3ZZ Extirpation of Matter from Upper Artery, Percutaneous Approach (ICD-10-PCS; principal; 2022-06-16 15:45)
DX: T82.868A Thrombosis due to vascular prosthetic devices, implants and grafts, initial encounter (principal); N18.6 End stage renal disease; I13.2 Hypertensive heart and chronic kidney disease with heart failure and with stage 5 chronic kidney disease, or end stage renal disease; N25.81 Secondary hyperparathyroidism of renal origin; I77.0 Arteriovenous fistula, acquired; I50.9 Heart failure, unspecified; Z66 Do not resuscitate; R53.81 Other malaise; E87.70 Fluid overload, unspecified; E87.5 Hyperkalemia; E78.5 Hyperlipidemia, unspecified; D63.1 Anemia in chronic kidney disease; Z91.040 Latex allergy status; Z91.041 Radiographic dye allergy status; Z88.8 Allergy status to other drugs, medicaments and biological substances; Z79.899 Other long term (current) drug therapy; Z98.41 Cataract extraction status, right eye; Z98.42 Cataract extraction status, left eye; Z91.14 Patient's other noncompliance with medication regimen; Y83.2 Surgical operation with anastomosis, bypass or graft as the cause of abnormal reaction of the patient, or of later complication, without mention of misadventure at the time of the procedure

== ENCOUNTER 2022-10-21 07:37 | Inpatient (IN) | payer MEDICARE ==
[~2022-10-21] VITALS: Ht 152.4 cm; Wt 43.4 kg
[~2022-10-21 07:37] MED LIST changes: +CLON0.1D3 TD; +HYDR100T26 PO; +LIDO1CRE42 TOP; +VELT1POW PO; +VITA100093 PO
[2022-10-21 08:37] LABS: BASO % 0.4 % (0.0-1.0); EOS % 0.2 % (0.0-3.0); HEMATOCRIT 38.8 % (36.0-47.0); HEMOGLOBIN 12.2 g/dl (12.0-15.5); LYMPH # 0.4 10^3/uL (1.5-5.0); LYMPH % 4.6 % (24.0-44.0); MEAN CORPUSCULAR HEMOGLOBIN 33.7 pg (27.0-33.0); MEAN CORPUSCULAR HGB CONC 31.4 g/dl (32.0-36.5); MEAN CORPUSCULAR VOLUME 107.2 fl (80.0-96.0); MONO # 0.7 10^3/uL (0.0-0.8); MONO % 7.3 % (2.0-8.0); NEUTROPHILS # 8.4 10^3/uL (1.5-8.5); NEUTROPHILS % 86.9 % (36.0-66.0); PLATELET COUNT, AUTOMATED 156 10^3/uL (150-450); RED BLOOD COUNT 3.62 10^6/uL (4.00-5.40); WHITE BLOOD COUNT 9.6 10^3/uL (4.0-10.0)
[2022-10-21] MEDS ORDERED: Nephro-Vite (08:57)
[2022-10-21] MEDS ORDERED: PATIROMER SORBITEX CALCIUM 8.4 GM POWDER PACKET (VELTASSA) PO SCH (09:00)
[2022-10-21] MEDS ORDERED: **hydrALAZINE** 50 MG TAB PO ONE (09:05)
[2022-10-21] MEDS ORDERED: amLODIPine 5 MG TAB PO ONE (09:05)
[2022-10-21 09:15] LABS: RSV AMPLIFICATION NEGATIVE (NEGATIVE)
[2022-10-21 09:30] LABS: ALBUMIN 3.5 G/DL (3.2-5.2); ALKALINE PHOSPHATASE 224 U/L (46-116); ALT/SGPT 15 U/L (7.0-40); AST/SGOT 39 U/L (<34); BILIRUBIN,DIRECT < 0.1 MG/DL (<0.4); BILIRUBIN,TOTAL 0.2 MG/DL (0.3-1.2); BLOOD UREA NITROGEN 33 MG/DL (9-23); CALCIUM LEVEL 8.8 MG/DL (8.3-10.6); CARBON DIOXIDE LEVEL 29 MMOL/L (20-31); CHLORIDE LEVEL 98 MMOL/L (98-107); CREATININE FOR GFR 3.92 MG/DL (0.55-1.30); GLOMERULAR FILTRATION RATE 11.5 (>32); GLUCOSE, FASTING 110 MG/DL (74-106); POTASSIUM SERUM 6.8 MMOL/L (3.5-5.1); SODIUM LEVEL 136 MMOL/L (136-145); TOTAL PROTEIN 7.6 G/DL (5.7-8.2)
[2022-10-21] MEDS ORDERED: LIDOCAINE 1% SDV 5ML VIAL SC PRN (11:10)
[2022-10-21] MEDS ORDERED: SODIUM CHLORIDE 0.9% 1000ML IV PRN (11:10)
[2022-10-21] MEDS ORDERED: HEPARIN 1,000UNITS/ML 10ML VIAL (FOR RADIOLOGY & DIALYSIS ONLY) IV PRN (11:10)
[2022-10-21] MEDS ORDERED: HEPARIN 1,000UNITS/ML 10ML VIAL (FOR RADIOLOGY & DIALYSIS ONLY) XX SCH (11:10)
[2022-10-21] MEDS ORDERED: TRIPCAP PO (11:43)
[2022-10-21] MEDS ORDERED: HOME MED LIST COMPLETE! XX SCH (11:45)
[2022-10-21] MEDS ORDERED: ACETAMINOPHEN TAB 650MG DOSE (2X325MG) PO PRN (12:35)
[2022-10-21] MEDS ORDERED: SODIUM CHLORIDE NASAL 0.65% SPRAY BTL (OCEAN) PRN (12:45)
[2022-10-21 15:21] LABS: HEPATITIS B SURFACE ANTIBODY NEGATIVE (POSITIVE)
[2022-10-21 16:45] VITALS: BP 120/63
[2022-10-21 17:25] LABS: HEPATITIS B SURFACE ANTIGEN POSITIVE (NEGATIVE)
[2022-10-21] MEDS: VITAMIN D 1,000 INTERNATIONAL UNITS TABLET PO SCH (17:46)
[2022-10-21] MEDS: SUCROFERRIC OXYHYDROXIDE 500MG CHEW TAB (VELPHORO) PO SCH (17:46)
[2022-10-21] MEDS: (RENVELA) SEVELAMER **CARBONate** 800 MG TAB PO SCH (17:46)
[2022-10-21] MEDS: IRBESARTAN 150MG TAB PO SCH (18:22)
[2022-10-21] MEDS: NEPHRO-VIT TAB (NEPHROCAPS) PO SCH (18:22)
[2022-10-21] MEDS: **hydrALAZINE** 50 MG TAB PO SCH (20:12)
[2022-10-21] MEDS: HEPARIN SOD (PORCINE) 5000UNITS/ML 1ML VIAL/SYRINGE SC SCH (20:13)
[2022-10-21 21:00] VITALS: BP 122/61
[2022-10-21] MEDS ORDERED: ATORVASTATIN 20 MG TAB PO SCH (21:00)
[2022-10-22 05:35] VITALS: BP 163/77
[2022-10-22] MEDS: VITAMIN D 1,000 INTERNATIONAL UNITS TABLET PO SCH (05:38)
[2022-10-22] MEDS: NEPHRO-VIT TAB (NEPHROCAPS) PO SCH (05:38)
[2022-10-22] MEDS: **hydrALAZINE** 50 MG TAB PO SCH (05:38)
[2022-10-22] MEDS: SUCROFERRIC OXYHYDROXIDE 500MG CHEW TAB (VELPHORO) PO SCH ×3 (05:39→17:51)
[2022-10-22] MEDS: (RENVELA) SEVELAMER **CARBONate** 800 MG TAB PO SCH ×3 (05:39→17:51)
[2022-10-22] MEDS: HEPARIN SOD (PORCINE) 5000UNITS/ML 1ML VIAL/SYRINGE SC SCH (05:40)
[2022-10-22 06:14] LABS: HEMATOCRIT 33.5 % (36.0-47.0); HEMOGLOBIN 10.5 g/dl (12.0-15.5); MEAN CORPUSCULAR HEMOGLOBIN 33.4 pg (27.0-33.0); MEAN CORPUSCULAR HGB CONC 31.3 g/dl (32.0-36.5); MEAN CORPUSCULAR VOLUME 106.7 fl (80.0-96.0); PLATELET COUNT, AUTOMATED 137 10^3/uL (150-450); RED BLOOD COUNT 3.14 10^6/uL (4.00-5.40); WHITE BLOOD COUNT 5.3 10^3/uL (4.0-10.0)
[2022-10-22 06:49] LABS: ALBUMIN 2.9 G/DL (3.2-5.2); BILIRUBIN,TOTAL 0.4 MG/DL (0.3-1.2); CALCIUM LEVEL 8.7 MG/DL (8.3-10.6); CREATININE FOR GFR 3.08 MG/DL (0.55-1.30); GLOMERULAR FILTRATION RATE 15.2 (>32); MAGNESIUM LEVEL 2.1 MG/DL (1.8-2.4); POTASSIUM SERUM 4.4 MMOL/L (3.5-5.1); TOTAL PROTEIN 6.4 G/DL (5.7-8.2)
[2022-10-22 08:00] VITALS: BP 135/62
[2022-10-22] MEDS ORDERED: LIDOCAINE 1% SDV 5ML VIAL SC PRN (08:00)
[2022-10-22] MEDS ORDERED: HEPARIN 1,000UNITS/ML 10ML VIAL (FOR RADIOLOGY & DIALYSIS ONLY) IV PRN (08:00)
[2022-10-22] MEDS ORDERED: SODIUM CHLORIDE 0.9% 1000ML IV PRN (08:00)
[2022-10-22] MEDS ORDERED: HEPARIN 1,000UNITS/ML 10ML VIAL (FOR RADIOLOGY & DIALYSIS ONLY) XX SCH (08:00)
[2022-10-22] MEDS: IRBESARTAN 150MG TAB PO SCH (08:22)
[2022-10-22 08:23] VITALS: BP 136/82
[2022-10-22] MEDS ORDERED: IRBESARTAN 150MG TAB PO SCH ×2 (09:00)
[2022-10-22] MEDS ORDERED: amLODIPine 5 MG TAB PO SCH (09:00)
[2022-10-24] MEDS ORDERED: cloNIDine HCL 0.1 MG/24 HR PATCH TD SCH (09:00)
== END 2022-10-22 17:56 | disposition home or self-care (01) | DRG 640 ==
LOC: EDBD 07:37 → M ED 07:37 → M ED INP 12:35 → ENRESERV 13:28 → M MSPAV 16:47
PROVIDERS: ADMIT Family Medicine; ATTEND Family Medicine
DX: E87.5 Hyperkalemia (principal); N18.6 End stage renal disease; I16.9 Hypertensive crisis, unspecified; I12.0 Hypertensive chronic kidney disease with stage 5 chronic kidney disease or end stage renal disease; E78.5 Hyperlipidemia, unspecified; Z91.040 Latex allergy status; Z91.041 Radiographic dye allergy status; Z88.8 Allergy status to other drugs, medicaments and biological substances; Z79.899 Other long term (current) drug therapy; Z99.2 Dependence on renal dialysis

== ENCOUNTER → 2022-12-19 | Outpatient (REF) | payer MEDICARE ==
[~2022-12-19] MED LIST changes: +TRIPCAP PO
[2022-12-19 18:58] LABS: PHOSPHORUS LEVEL 2.4 MG/DL (2.4-5.1)
[2022-12-19 18:59] LABS: PTH INTACT 41.3 PG/ML (18.5-88.0)
[2022-12-19 19:34] LABS: HEPATITIS C VIRUS ABY INDEX 0.2 INDEX (<0.8)
== END ==
LOC: M LAB REF 17:05
PROVIDERS: ATTEND Internal Medicine
DX: N18.9 Chronic kidney disease, unspecified (principal); Z13.89 Encounter for screening for other disorder

== ENCOUNTER 2023-01-23 05:44 | Inpatient (IN) | payer MEDICARE ==
[~2023-01-23] VITALS: Ht 149.9 cm; Wt 42.2 kg
[2023-01-23 07:32] LABS: BASO % 0.3 % (0.0-1.0); EOS % 0.1 % (0.0-3.0); HEMATOCRIT 26.6 % (36.0-47.0); HEMOGLOBIN 8.3 g/dl (12.0-15.5); LYMPH # 0.3 10^3/uL (1.5-5.0); LYMPH % 2.3 % (24.0-44.0); MEAN CORPUSCULAR HEMOGLOBIN 33.7 pg (27.0-33.0); MEAN CORPUSCULAR HGB CONC 31.2 g/dl (32.0-36.5); MEAN CORPUSCULAR VOLUME 108.1 fl (80.0-96.0); MONO # 0.7 10^3/uL (0.0-0.8); NEUTROPHILS % 91.2 % (36.0-66.0); PLATELET COUNT, AUTOMATED 132 10^3/uL (150-450); RED BLOOD COUNT 2.46 10^6/uL (4.00-5.40); WHITE BLOOD COUNT 13.1 10^3/uL (4.0-10.0)
[2023-01-23 07:48] LABS: INR 1.05; PROTHROMBIN TIME 13.9 SECONDS (12.5-14.5)
[2023-01-23 07:49] LABS: PARTIAL THROMBOPLASTIN TIME 32.5 SECONDS (24.8-34.2)
[2023-01-23 08:06] LABS: CK-MB VALUE MASS < 1.0 NG/ML (<3.6); LIPASE 27 U/L (12-53)
[2023-01-23 08:08] LABS: ALBUMIN 2.8 G/DL (3.2-5.2); ALKALINE PHOSPHATASE 186 U/L (46-116); ALT/SGPT 12 U/L (7.0-40); AST/SGOT 16 U/L (<34); BILIRUBIN,DIRECT 0.2 MG/DL (<0.4); BILIRUBIN,TOTAL 0.4 MG/DL (0.3-1.2); BLOOD UREA NITROGEN 25 MG/DL (9-23); CALCIUM LEVEL 7.7 MG/DL (8.3-10.6); CARBON DIOXIDE LEVEL 30 MMOL/L (20-31); CHLORIDE LEVEL 99 MMOL/L (98-107); CPK CREATINE PHOSPHOKINASE 48 U/L (34-145); CREATININE FOR GFR 3.87 MG/DL (0.55-1.30); GLOMERULAR FILTRATION RATE 11.7 (>32); GLUCOSE, FASTING 135 MG/DL (74-106); MAGNESIUM LEVEL 2.1 MG/DL (1.8-2.4); MB/CK RELATIVE INDEX 2.08 (< OR =4); PHOSPHORUS LEVEL 1.8 MG/DL (2.4-5.1); POTASSIUM SERUM 4.1 MMOL/L (3.5-5.1); SODIUM LEVEL 138 MMOL/L (136-145); TOTAL PROTEIN 5.8 G/DL (5.7-8.2)
[2023-01-23 08:10] LABS: FREE T4 0.94 NG/DL (0.89-1.76); THYROID STIMULATING HORMONE 8.111 uIU/ML (0.55-4.78)
[2023-01-23] MEDS ORDERED: CEFTAROLINE FOSAMIL 200 MG in D5W 50 ML IV ONE ×2 (08:30→10:00)
[2023-01-23] MEDS ORDERED: LIDOCAINE 1% SDV 5ML VIAL SC PRN (10:25)
[2023-01-23] MEDS ORDERED: SODIUM CHLORIDE 0.9% 1000ML IV PRN (10:25)
[2023-01-23] MEDS ORDERED: HEPARIN 1,000UNITS/ML 10ML VIAL (FOR RADIOLOGY & DIALYSIS ONLY) IV PRN (10:25)
[2023-01-23] MEDS ORDERED: HEPARIN 1,000UNITS/ML 10ML VIAL (FOR RADIOLOGY & DIALYSIS ONLY) XX SCH (10:25)
[2023-01-23 10:58] LABS: MB/CK RELATIVE INDEX 1.72 (< OR =4)
[2023-01-23 16:00] VITALS: BP 122/53
[2023-01-23] MEDS ORDERED: HOME MED LIST COMPLETE! XX SCH (19:55)
[2023-01-23] MEDS ORDERED: amLODIPine 5 MG TAB PO SCH (21:00)
[2023-01-23] MEDS ORDERED: ATORVASTATIN 20 MG TAB PO SCH (21:00)
[2023-01-23] MEDS ORDERED: **hydrALAZINE** 50 MG TAB PO SCH (21:00)
[2023-01-23] MEDS: HEPARIN SOD (PORCINE) 5000UNITS/ML 1ML VIAL/SYRINGE SQ SCH (21:42)
[2023-01-23 21:50] VITALS: BP 118/91
[2023-01-23] MEDS: METOPROLOL TART 25 MG TABLET PO SCH (21:53)
[2023-01-23 22:00] VITALS: BP_SYST 113; BP_SYST 118; BP_SYST 122; BP_DIAS 45; BP_DIAS 49; BP_DIAS 91
[2023-01-24 04:40] VITALS: BP 122/50
[2023-01-24 06:00] VITALS: BP_SYST 122; BP_SYST 124; BP_SYST 129; BP_DIAS 50; BP_DIAS 51; BP_DIAS 55
[2023-01-24 06:23] LABS: BASO % 0.3 % (0.0-1.0); EOS # 0.1 10^3/uL (0.0-0.5); EOS % 0.8 % (0.0-3.0); HEMATOCRIT 22.6 % (36.0-47.0); HEMOGLOBIN 7.2 g/dl (12.0-15.5); LYMPH # 0.6 10^3/uL (1.5-5.0); LYMPH % 5.8 % (24.0-44.0); MEAN CORPUSCULAR HEMOGLOBIN 33.8 pg (27.0-33.0); MEAN CORPUSCULAR HGB CONC 31.9 g/dl (32.0-36.5); MEAN CORPUSCULAR VOLUME 106.1 fl (80.0-96.0); MONO # 0.7 10^3/uL (0.0-0.8); MONO % 6.5 % (2.0-8.0); NEUTROPHILS # 8.7 10^3/uL (1.5-8.5); NEUTROPHILS % 85.7 % (36.0-66.0); PLATELET COUNT, AUTOMATED 132 10^3/uL (150-450); RED BLOOD COUNT 2.13 10^6/uL (4.00-5.40); WHITE BLOOD COUNT 10.2 10^3/uL (4.0-10.0)
[2023-01-24 06:44] LABS: CALCIUM LEVEL 7.7 MG/DL (8.3-10.6); CREATININE FOR GFR 2.25 MG/DL (0.55-1.30); GLOMERULAR FILTRATION RATE 21.9 (>32); POTASSIUM SERUM 3.6 MMOL/L (3.5-5.1)
[2023-01-24] MEDS ORDERED: NEPHRO-VIT TAB (NEPHROCAPS) PO SCH (09:00)
[2023-01-24] MEDS ORDERED: IRBESARTAN 150MG TAB PO SCH (09:00)
[2023-01-24] MEDS ORDERED: amLODIPine 5 MG TAB PO SCH (09:00)
[2023-01-24] MEDS ORDERED: VITAMIN D 1,000 INTERNATIONAL UNITS TABLET PO SCH (09:00)
[2023-01-24] MEDS: HEPARIN SOD (PORCINE) 5000UNITS/ML 1ML VIAL/SYRINGE SQ SCH (09:31)
[2023-01-24 09:32] VITALS: BP 112/45
[2023-01-24] MEDS: METOPROLOL TART 25 MG TABLET PO SCH (09:32)
[2023-01-24 10:00] VITALS: BP 116/47
[2023-01-24 12:42] LABS: HEMATOCRIT 25.7 % (36.0-47.0); HEMOGLOBIN 8.3 g/dl (12.0-15.5); MEAN CORPUSCULAR HEMOGLOBIN 34.3 pg (27.0-33.0); MEAN CORPUSCULAR HGB CONC 32.3 g/dl (32.0-36.5); MEAN CORPUSCULAR VOLUME 106.2 fl (80.0-96.0); PLATELET COUNT, AUTOMATED 122 10^3/uL (150-450); RED BLOOD COUNT 2.42 10^6/uL (4.00-5.40); WHITE BLOOD COUNT 11.7 10^3/uL (4.0-10.0)
[2023-01-24 14:00] VITALS: BP 111/42
[2023-01-24] MEDS ORDERED: BLOOKIT XX ×2 (14:15→17:22)
[2023-01-24] MEDS ORDERED: METO1TAB87 PO ×2 (14:15→17:21)
== END 2023-01-24 17:25 | disposition home or self-care (01) | DRG 91 ==
LOC: M ED 05:44 → M ED INP 10:18 → ENRESERV 14:07 → M MSPAV 16:00
PROVIDERS: ADMIT Internal Medicine Nephrology; ATTEND Internal Medicine Nephrology
PROC: 5A1D70Z Performance of Urinary Filtration, Intermittent, Less than 6 Hours Per Day (ICD-10-PCS; principal; 2023-01-23)
DX: R29.6 Repeated falls (principal); N18.6 End stage renal disease; J98.11 Atelectasis; N25.81 Secondary hyperparathyroidism of renal origin; E46 Unspecified protein-calorie malnutrition; I13.2 Hypertensive heart and chronic kidney disease with heart failure and with stage 5 chronic kidney disease, or end stage renal disease; B19.10 Unspecified viral hepatitis B without hepatic coma; I48.0 Paroxysmal atrial fibrillation; D63.1 Anemia in chronic kidney disease; D69.6 Thrombocytopenia, unspecified; E78.5 Hyperlipidemia, unspecified; E87.5 Hyperkalemia; E83.39 Other disorders of phosphorus metabolism; I50.9 Heart failure, unspecified; B95.62 Methicillin resistant Staphylococcus aureus infection as the cause of diseases classified elsewhere; Z99.2 Dependence on renal dialysis; Z91.040 Latex allergy status; Z91.041 Radiographic dye allergy status; Z88.8 Allergy status to other drugs, medicaments and biological substances; Z79.899 Other long term (current) drug therapy; Z98.41 Cataract extraction status, right eye; Z98.42 Cataract extraction status, left eye

== ENCOUNTER 2023-04-04 12:17 | Inpatient (IN) | payer MEDICARE ==
[~2023-04-04] VITALS: Ht 152.4 cm; Wt 38.0 kg
[~2023-04-04 12:17] MED LIST changes: +BLOOKIT XX; -LIDO1CRE42 TOP; +LIDO30CR18 TOP; +METO1TAB87 PO
[2023-04-04 13:14] LABS: BASO % 0.3 % (0.0-1.0); EOS # 0.1 10^3/uL (0.0-0.5); EOS % 0.5 % (0.0-3.0); HEMATOCRIT 33.9 % (36.0-47.0); HEMOGLOBIN 10.3 g/dl (12.0-15.5); LYMPH # 0.4 10^3/uL (1.5-5.0); LYMPH % 4.8 % (24.0-44.0); MEAN CORPUSCULAR HEMOGLOBIN 31.4 pg (27.0-33.0); MEAN CORPUSCULAR HGB CONC 30.4 g/dl (32.0-36.5); MEAN CORPUSCULAR VOLUME 103.4 fl (80.0-96.0); MONO # 0.6 10^3/uL (0.0-0.8); MONO % 6.1 % (2.0-8.0); NEUTROPHILS # 8.1 10^3/uL (1.5-8.5); NEUTROPHILS % 87.8 % (36.0-66.0); PLATELET COUNT, AUTOMATED 115 10^3/uL (150-450); RED BLOOD COUNT 3.28 10^6/uL (4.00-5.40); WHITE BLOOD COUNT 9.2 10^3/uL (4.0-10.0)
[2023-04-04 13:27] LABS: INR 1.1; PROTHROMBIN TIME 14.4 SECONDS (12.5-14.5)
[2023-04-04 13:28] LABS: PARTIAL THROMBOPLASTIN TIME 31.3 SECONDS (24.8-34.2)
[2023-04-04 13:41] LABS: ALBUMIN 2.6 G/DL (3.2-5.2); ALKALINE PHOSPHATASE 125 U/L (46-116); ALT/SGPT < 9 U/L (7.0-40); AST/SGOT 14 U/L (<34); BILIRUBIN,DIRECT 0.3 MG/DL (<0.4); BILIRUBIN,TOTAL 0.6 MG/DL (0.3-1.2); BLOOD UREA NITROGEN 21 MG/DL (9-23); CALCIUM LEVEL 7.9 MG/DL (8.3-10.6); CARBON DIOXIDE LEVEL 30 MMOL/L (20-31); CHLORIDE LEVEL 99 MMOL/L (98-107); CK-MB VALUE MASS < 1.0 NG/ML (<3.6); CPK CREATINE PHOSPHOKINASE 19 U/L (34-145); CREATININE FOR GFR 3.42 MG/DL (0.55-1.30); GLOMERULAR FILTRATION RATE 13.5 (>32); GLUCOSE, FASTING 114 MG/DL (74-106); MAGNESIUM LEVEL 2.2 MG/DL (1.8-2.4); MB/CK RELATIVE INDEX 5.26 (< OR =4); SODIUM LEVEL 136 MMOL/L (136-145); TOTAL PROTEIN 6.4 G/DL (5.7-8.2)
[2023-04-04 13:42] LABS: THYROID STIMULATING HORMONE 1.894 uIU/ML (0.55-4.78)
[2023-04-04 13:43] LABS: FREE T4 0.95 NG/DL (0.89-1.76)
[2023-04-04 14:55] LABS: CK-MB VALUE MASS 1.2 NG/ML (<3.6)
[2023-04-04 14:56] LABS: MB/CK RELATIVE INDEX 5.45 (< OR =4)
[2023-04-04 16:30] LABS: CK-MB VALUE MASS 3.1 NG/ML (<3.6)
[2023-04-04 16:34] LABS: MB/CK RELATIVE INDEX 14.09 (< OR =4)
[2023-04-04] MEDS ORDERED: hydrALAZINE 20MG/ML 1ML VIAL IV ONE (18:00)
[2023-04-04] MEDS ORDERED: METO1TAB87 PO (19:18)
[2023-04-04] MEDS ORDERED: VELP5CHW PO (19:18)
[2023-04-04] MEDS ORDERED: HOME MED LIST COMPLETE! XX SCH (19:20)
[2023-04-04] MEDS ORDERED: ONDANSETRON 4MG 2ML VIAL IV PRN (20:00)
[2023-04-04 20:20] VITALS: BP 165/71; TEMP 96.9; O2SAT 97
[2023-04-04] MEDS ORDERED: BISACODYL 10MG SUPP PR ONE (21:00)
[2023-04-04] MEDS: DOCUSATE SODIUM 100MG CAPSULE PO SCH (22:24)
[2023-04-04] MEDS: ATORVASTATIN 20 MG TAB PO SCH (22:24)
[2023-04-04] MEDS: METOPROLOL TART 25 MG TABLET PO SCH (22:24)
[2023-04-04] MEDS: ASPIRIN 81MG ENTERIC TABLET PO SCH (22:26)
[2023-04-04] MEDS ORDERED: CLINDAMYCIN 600 MG in IV 1 EA IV ONE (23:00)
[2023-04-04 23:25] VITALS: BP 132/60; TEMP 96.8; O2SAT 99
[2023-04-05] VITALS (7 sets, daily range): BP systolic 136–190; BP diastolic 58–74; TEMP 96.6–98; O2SAT 94–100
[2023-04-05 00:47] LABS: CK-MB VALUE MASS 1.6 NG/ML (<3.6)
[2023-04-05 00:48] LABS: MB/CK RELATIVE INDEX 8.42 (< OR =4)
[2023-04-05] MEDS ORDERED: hydrALAZINE 20MG/ML 1ML VIAL IV ONE (05:00)
[2023-04-05 05:49] LABS: HEMATOCRIT 37.5 % (36.0-47.0); HEMOGLOBIN 11.3 g/dl (12.0-15.5); MEAN CORPUSCULAR HGB CONC 30.1 g/dl (32.0-36.5); PLATELET COUNT, AUTOMATED 125 10^3/uL (150-450); RED BLOOD COUNT 3.64 10^6/uL (4.00-5.40); WHITE BLOOD COUNT 13.2 10^3/uL (4.0-10.0)
[2023-04-05] MEDS ORDERED: PANTOPRAZOLE 40MG VIAL IV ONE (06:00)
[2023-04-05 06:11] LABS: CALCIUM LEVEL 8.1 MG/DL (8.3-10.6); CREATININE FOR GFR 4.09 MG/DL (0.55-1.30); POTASSIUM SERUM 4.4 MMOL/L (3.5-5.1)
[2023-04-05] MEDS: ASPIRIN 81MG ENTERIC TABLET PO SCH (09:02)
[2023-04-05] MEDS: VITAMIN D 1,000 INTERNATIONAL UNITS TABLET PO SCH (09:02)
[2023-04-05] MEDS: SUCROFERRIC OXYHYDROXIDE 500MG CHEW TAB (VELPHORO) PO SCH ×3 (09:02→18:29)
[2023-04-05] MEDS: CLINDAMYCIN 150MG CAPSULE PO SCH ×4 (09:03→20:49)
[2023-04-05] MEDS: METOPROLOL TART 25 MG TABLET PO SCH ×2 (09:03→20:49)
[2023-04-05] MEDS: DOCUSATE SODIUM 100MG CAPSULE PO SCH ×2 (09:03→20:49)
[2023-04-05] MEDS: NEPHRO-VIT TAB (NEPHROCAPS) PO SCH (10:20)
[2023-04-05] MEDS ORDERED: **hydrALAZINE HCL** 25 MG TAB PO PRN (11:00)
[2023-04-05 12:23] LABS: HEMATOCRIT 36.5 % (36.0-47.0); HEMOGLOBIN 11.2 g/dl (12.0-15.5); MEAN CORPUSCULAR HEMOGLOBIN 31.4 pg (27.0-33.0); MEAN CORPUSCULAR HGB CONC 30.7 g/dl (32.0-36.5); MEAN CORPUSCULAR VOLUME 102.2 fl (80.0-96.0); PLATELET COUNT, AUTOMATED 126 10^3/uL (150-450); RED BLOOD COUNT 3.57 10^6/uL (4.00-5.40); WHITE BLOOD COUNT 18.9 10^3/uL (4.0-10.0)
[2023-04-05] MEDS: PIPERACILLIN/TAZOBACTAM SOD 2.25 GM in D5W MINI-BAG PLUS 50 ML IV SCH (14:10)
[2023-04-05] MEDS: PANTOPRAZOLE 40MG TAB (PROTONIX) PO SCH (20:49)
[2023-04-05] MEDS: ATORVASTATIN 20 MG TAB PO SCH (20:49)
[2023-04-06] MEDS: PIPERACILLIN/TAZOBACTAM SOD 2.25 GM in D5W MINI-BAG PLUS 50 ML IV SCH ×3 (02:49→17:27)
[2023-04-06 04:39] VITALS: BP 135/63; TEMP 97.4; O2SAT 98
[2023-04-06] MEDS: PANTOPRAZOLE 40MG TAB (PROTONIX) PO SCH ×2 (05:46→21:32)
[2023-04-06] MEDS: DOCUSATE SODIUM 100MG CAPSULE PO SCH (05:46)
[2023-04-06] MEDS: CLINDAMYCIN 150MG CAPSULE PO SCH ×2 (05:46→12:58)
[2023-04-06] MEDS: NEPHRO-VIT TAB (NEPHROCAPS) PO SCH (05:46)
[2023-04-06] MEDS: VITAMIN D 1,000 INTERNATIONAL UNITS TABLET PO SCH (05:46)
[2023-04-06] MEDS ORDERED: HEPARIN 1,000UNITS/ML 10ML VIAL (FOR RADIOLOGY & DIALYSIS ONLY) XX SCH (07:15)
[2023-04-06] MEDS ORDERED: LIDOCAINE 1% SDV 5ML VIAL SC PRN (07:15)
[2023-04-06] MEDS ORDERED: HEPARIN 1,000UNITS/ML 10ML VIAL (FOR RADIOLOGY & DIALYSIS ONLY) IV PRN (07:15)
[2023-04-06] MEDS ORDERED: SODIUM CHLORIDE 0.9% 1000ML IV PRN (07:15)
[2023-04-06 07:17] LABS: HEMATOCRIT 32.3 % (36.0-47.0); MEAN CORPUSCULAR HEMOGLOBIN 31.5 pg (27.0-33.0); MEAN CORPUSCULAR VOLUME 101.9 fl (80.0-96.0); PLATELET COUNT, AUTOMATED 122 10^3/uL (150-450); RED BLOOD COUNT 3.17 10^6/uL (4.00-5.40); WHITE BLOOD COUNT 19.6 10^3/uL (4.0-10.0)
[2023-04-06 07:39] LABS: CALCIUM LEVEL 8.8 MG/DL (8.3-10.6); CREATININE FOR GFR 5.25 MG/DL (0.55-1.30); GLOMERULAR FILTRATION RATE 8.2 (>32); POTASSIUM SERUM 4.2 MMOL/L (3.5-5.1)
[2023-04-06] MEDS: SUCROFERRIC OXYHYDROXIDE 500MG CHEW TAB (VELPHORO) PO SCH ×3 (08:00→17:27)
[2023-04-06 08:03] VITALS: BP 124/58; TEMP 97.1; O2SAT 99
[2023-04-06 12:17] VITALS: BP 135/60; TEMP 96.8; O2SAT 99
[2023-04-06] MEDS: ASPIRIN 81MG ENTERIC TABLET PO SCH (12:58)
[2023-04-06] MEDS: METOPROLOL TART 25 MG TABLET PO SCH ×2 (12:58→21:32)
[2023-04-06] MEDS ORDERED: ONDANSETRON 4MG TAB PO PRN (14:45)
[2023-04-06 15:59] VITALS: BP 117/56; TEMP 97; O2SAT 99
[2023-04-06] MEDS ORDERED: LIDOCAINE 1% MDV 20ML VIAL As Ordered ONE (16:09)
[2023-04-06] MEDS ORDERED: DAPTOmycin 330 MG in NS 50 ML IV SCH (18:00)
[2023-04-06] MEDS ORDERED: SODIUM CHLORIDE 0.9% INJ 10 ML SYR IV PRN (18:50)
[2023-04-06 20:47] VITALS: BP 163/68; TEMP 96.7; O2SAT 99
[2023-04-06] MEDS ORDERED: MECLIZINE 12.5 MG TAB PO ONE (20:50)
[2023-04-07] VITALS (8 sets, daily range): BP systolic 135–166; BP diastolic 62–68; TEMP 96.6–97.9; O2SAT 99–100
[2023-04-07] MEDS: PIPERACILLIN/TAZOBACTAM SOD 2.25 GM in D5W MINI-BAG PLUS 50 ML IV SCH (02:49)
[2023-04-07 06:24] LABS: HEMATOCRIT 30.7 % (36.0-47.0); HEMOGLOBIN 9.4 g/dl (12.0-15.5); MEAN CORPUSCULAR HEMOGLOBIN 31.2 pg (27.0-33.0); MEAN CORPUSCULAR HGB CONC 30.6 g/dl (32.0-36.5); PLATELET COUNT, AUTOMATED 106 10^3/uL (150-450); RED BLOOD COUNT 3.01 10^6/uL (4.00-5.40); WHITE BLOOD COUNT 16.2 10^3/uL (4.0-10.0)
[2023-04-07 06:51] LABS: CALCIUM LEVEL 8.1 MG/DL (8.3-10.6); CREATININE FOR GFR 3.04 MG/DL (0.55-1.30); GLOMERULAR FILTRATION RATE 15.4 (>32); POTASSIUM SERUM 3.7 MMOL/L (3.5-5.1)
[2023-04-07] MEDS: VITAMIN D 1,000 INTERNATIONAL UNITS TABLET PO SCH (08:16)
[2023-04-07] MEDS: PANTOPRAZOLE 40MG TAB (PROTONIX) PO SCH ×2 (08:16→21:51)
[2023-04-07] MEDS: ASPIRIN 81MG ENTERIC TABLET PO SCH (08:16)
[2023-04-07] MEDS: NEPHRO-VIT TAB (NEPHROCAPS) PO SCH (08:16)
[2023-04-07] MEDS: METOPROLOL TART 25 MG TABLET PO SCH ×2 (08:17→21:51)
[2023-04-07] MEDS: SUCROFERRIC OXYHYDROXIDE 500MG CHEW TAB (VELPHORO) PO SCH ×3 (08:17→17:19)
[2023-04-07] MEDS ORDERED: SODIUM CHLORIDE 0.9% INJ 10 ML SYR IV SCH (09:00)
[2023-04-07] MEDS: HEPARIN SOD (PORCINE) 5000UNITS/ML 1ML VIAL/SYRINGE SQ SCH ×2 (12:33→21:51)
[2023-04-07 13:25] LABS: IRON (FE) 34 UG/DL (50-170); PERCENT SATURATION 25.4 % (13.2-45.0); TOTAL IRON BINDING CAPACITY 134 UG/DL (250-425)
[2023-04-07 13:28] LABS: VITAMIN B12 LEVEL 1017 PG/ML (211-911)
[2023-04-07 13:46] LABS: FERRITIN 1576.5 NG/ML (7.3-270.7); FOLATE > 24.00 NG/ML (>5.4)
[2023-04-08 03:50] VITALS: BP 149/65; TEMP 98.4; O2SAT 97
[2023-04-08] MEDS ORDERED: HEPARIN 1,000UNITS/ML 10ML VIAL (FOR RADIOLOGY & DIALYSIS ONLY) XX SCH (05:20)
[2023-04-08] MEDS ORDERED: SODIUM CHLORIDE 0.9% 1000ML IV PRN (05:20)
[2023-04-08] MEDS ORDERED: HEPARIN 1,000UNITS/ML 10ML VIAL (FOR RADIOLOGY & DIALYSIS ONLY) IV PRN (05:20)
[2023-04-08] MEDS ORDERED: LIDOCAINE 1% SDV 5ML VIAL SC PRN (05:20)
[2023-04-08 05:32] LABS: HEMATOCRIT 32.6 % (36.0-47.0); HEMOGLOBIN 9.9 g/dl (12.0-15.5); MEAN CORPUSCULAR HEMOGLOBIN 31.6 pg (27.0-33.0); MEAN CORPUSCULAR HGB CONC 30.4 g/dl (32.0-36.5); MEAN CORPUSCULAR VOLUME 104.2 fl (80.0-96.0); PLATELET COUNT, AUTOMATED 135 10^3/uL (150-450); RED BLOOD COUNT 3.13 10^6/uL (4.00-5.40); WHITE BLOOD COUNT 13.9 10^3/uL (4.0-10.0)
[2023-04-08 05:50] LABS: CALCIUM LEVEL 8.5 MG/DL (8.3-10.6); CREATININE FOR GFR 4.35 MG/DL (0.55-1.30); GLOMERULAR FILTRATION RATE 10.2 (>32); POTASSIUM SERUM 3.9 MMOL/L (3.5-5.1)
[2023-04-08] MEDS: SUCROFERRIC OXYHYDROXIDE 500MG CHEW TAB (VELPHORO) PO SCH (08:00)
[2023-04-08] MEDS: ASPIRIN 81MG ENTERIC TABLET PO SCH (08:13)
[2023-04-08] MEDS: METOPROLOL TART 25 MG TABLET PO SCH (08:13)
[2023-04-08] MEDS: PANTOPRAZOLE 40MG TAB (PROTONIX) PO SCH (08:14)
[2023-04-08] MEDS: NEPHRO-VIT TAB (NEPHROCAPS) PO SCH (08:14)
[2023-04-08] MEDS: VITAMIN D 1,000 INTERNATIONAL UNITS TABLET PO SCH (08:15)
[2023-04-08] MEDS: HEPARIN SOD (PORCINE) 5000UNITS/ML 1ML VIAL/SYRINGE SQ SCH (08:15)
[2023-04-09] MEDS ORDERED: ACETAMINOPHEN TAB 650MG DOSE (2X325MG) PO ONE (20:55)
[2023-04-10] MEDS ORDERED: ACETAMINOPHEN TAB 650MG DOSE (2X325MG) PO ONE (10:30)
[2023-04-10] MEDS ORDERED: ACETAMINOPHEN 500 MG TAB PO ONE (10:30)
[2023-04-10] MEDS ORDERED: ACETAMINOPHEN TAB 650MG DOSE (2X325MG) PO PRN (14:25)
[2023-04-10] MEDS: ONDANSETRON 4MG 2ML VIAL IV PRN (18:30)
[2023-04-10] MEDS: SCOPOLAMINE 1MG TRANSDERMAL PATCH TOP PRN (18:35)
[2023-04-11] MEDS: ONDANSETRON 4MG 2ML VIAL IV PRN (07:21)
[2023-04-12] MEDS: LORazepam 2 MG/ML 1ML VIAL IV PRN ×2 (02:23→22:12)
[2023-04-12] MEDS: MORPHINE 10MG/0.5ML ORAL CONCENTRATE SOLUTION U/D SL PRN (12:28)
[2023-04-13] MEDS: MORPHINE 10MG/0.5ML ORAL CONCENTRATE SOLUTION U/D SL PRN (05:45)
[2023-04-13] MEDS: SCOPOLAMINE 1MG TRANSDERMAL PATCH TOP PRN (18:54)
[2023-04-13] MEDS: LORazepam 2 MG/ML 1ML VIAL IV PRN (19:06)
[2023-04-13] MEDS: MORPHINE 2 MG/ML 1ML VIAL IV PRN ×2 (20:12→23:48)
[2023-04-14] MEDS: MORPHINE 2 MG/ML 1ML VIAL IV PRN (11:30)
[2023-04-14] MEDS: LORazepam 2 MG/ML 1ML VIAL IV PRN (21:31)
[2023-04-15] MEDS: TEMAZEPAM 7.5 MG CAP PO SCH (20:04)
[2023-04-15] MEDS: RAMELTEON 8 MG TAB (ROZEREM) PO SCH (20:04)
[2023-04-15] MEDS: LORazepam 2 MG/ML 1ML VIAL IV PRN (20:06)
[2023-04-15] MEDS: SCOPOLAMINE 1MG TRANSDERMAL PATCH TOP PRN ×2 (20:19→20:22)
[2023-04-16] MEDS: LORazepam 2 MG/ML 1ML VIAL IV PRN ×2 (04:01→20:33)
[2023-04-16] MEDS: SODIUM CHLORIDE 0.9% INJ 10 ML SYR IV SCH ×2 (04:01→17:57)
[2023-04-16] MEDS: MORPHINE 2 MG/ML 1ML VIAL IV PRN (15:32)
[2023-04-16] MEDS: SODIUM CHLORIDE 0.9% INJ 10 ML SYR IV PRN (20:33)
[2023-04-16] MEDS: RAMELTEON 8 MG TAB (ROZEREM) PO SCH (21:00)
[2023-04-16] MEDS: TEMAZEPAM 7.5 MG CAP PO SCH (21:00)
[2023-04-17] MEDS: MORPHINE 2 MG/ML 1ML VIAL IV PRN ×3 (04:12→20:19)
[2023-04-17] MEDS: SODIUM CHLORIDE 0.9% INJ 10 ML SYR IV SCH ×2 (04:13→18:00)
[2023-04-17] MEDS: LORazepam 2 MG/ML 1ML VIAL IV PRN (06:17)
[2023-04-17] MEDS: SODIUM CHLORIDE 0.9% INJ 10 ML SYR IV PRN (06:17)
[2023-04-17] MEDS: RAMELTEON 8 MG TAB (ROZEREM) PO SCH (21:00)
[2023-04-17] MEDS: TEMAZEPAM 7.5 MG CAP PO SCH (21:00)
[2023-04-18] MEDS: SODIUM CHLORIDE 0.9% INJ 10 ML SYR IV SCH (06:17)
== END 2023-04-18 11:04 | disposition expired ==
LOC: EDBD 12:17 → M ED 12:17 → M ED INP 18:16 → ENRESERV 19:35 → M PCU 20:08 → M MSPAV 04-13 15:34
PROVIDERS: ADMIT Internal Medicine; ATTEND Internal Medicine
PROC: 5A1D70Z Performance of Urinary Filtration, Intermittent, Less than 6 Hours Per Day (ICD-10-PCS; 2023-04-06)
PROC: 05HB33Z Insertion of Infusion Device into Right Basilic Vein, Percutaneous Approach (ICD-10-PCS; principal; 2023-04-06 16:00)
DX: T82.7XXA Infection and inflammatory reaction due to other cardiac and vascular devices, implants and grafts, initial encounter (principal); I21.A1 Myocardial infarction type 2; E43 Unspecified severe protein-calorie malnutrition; N18.6 End stage renal disease; I33.0 Acute and subacute infective endocarditis; R78.81 Bacteremia; K92.2 Gastrointestinal hemorrhage, unspecified; J84.9 Interstitial pulmonary disease, unspecified; I13.2 Hypertensive heart and chronic kidney disease with heart failure and with stage 5 chronic kidney disease, or end stage renal disease; I50.32 Chronic diastolic (congestive) heart failure; E21.1 Secondary hyperparathyroidism, not elsewhere classified; E78.5 Hyperlipidemia, unspecified; D64.9 Anemia, unspecified; I50.9 Heart failure, unspecified; I48.0 Paroxysmal atrial fibrillation; G47.00 Insomnia, unspecified; Y83.2 Surgical operation with anastomosis, bypass or graft as the cause of abnormal reaction of the patient, or of later complication, without mention of misadventure at the time of the procedure